=== PATIENT | male | born 1935 | race Caucasian/White ===

== ENCOUNTER 2023-07-02 19:56 | Inpatient (IN) | payer MEDICARE, BC, SELFPAY ==
[2023-07-02 17:05] VITALS: BP 142/72
[2023-07-02 17:20] VITALS: BP 142/72
[2023-07-02 17:44] LABS: % Basophils 0.5 % (0-2); % Immature Granulocytes 0.5 % (0-0.5); % Monocytes 3.7 % (1.7-9.3); % Neutrophils 94.3 % (42.2-75.2); Absolute Basophils 0.1 10^3/uL (0-0.2); Absolute Immature Granulocytes 0.1 10^3/uL (0-0.05); Absolute Lymphocytes 0.2 10^3/uL (1.2-3.4); Absolute Monocytes 0.6 10^3/uL (0.1-0.6); Absolute Neutrophils 14.5 10^3/uL (1.4-6.5); Hematocrit 29.4 % (39.0-52.0); Hemoglobin 9.9 g/dL (13.0-18.0); Mean Corp Hgb Conc. 33.7 g/dL (33.0-37.0); Mean Corpuscular Hgb 27.9 pg (27.0-31.0); Mean Corpuscular Volume 82.8 fL (80.0-94.0); Mean Platelet Volume 10.4 fL (7.4-10.4); Nucleated Red Blood Cells % 0 % (-); Platelet Count 183 10^3/uL (130-400); Red Blood Cell Count 3.55 10^6/uL (4.70-6.10); Red Cell Dist. Width 14.6 % (11.5-14.5); White Blood Cell Count 15.3 10^3/uL (4.8-10.8)
--- NOTE | 2023-07-02 17:53 | ED.GENMED ---
History of Present Illness
General
Chief Complaint: Fever
Time Seen by Provider: 07/02/23 17:38
Travel History
Have you had any contact with someone who has COVID-19?: No
Do you have any symptoms of coronavirus? Fever > 100 degrees, chills, cough, shortness of breath, sore throat, loss of taste or smell, muscle aches, or headache?: No
History of Present Illness
History of Present Illness:
88-year-old male with history of dementia, A-fib, and hyperlipidemia presents from [facility] due to fever and lethargy. Normally he is oriented only to self, requires a 24-hour one-to-one observation at his facility. notes
that he was less alert than normal over the past day and thus he was brought to the emergency department for evaluation. She also notes that he has had some difficulty with swallowing liquids with frequent coughing recently. Patient cannot provide
any further history due to dementia and acute encephalopathy
Past History
Past History
ED Past Medical History: None
ED Past Surgical History: None
Review of Systems
Review of Systems
Allergies reviewed?: Yes
All Other Systems: ROS reviewed and negative except as documented in HPI and ROS
Phy Exam
Physical Exam
Physical Exam:
GEN: Ill-appearing, acutely ill
Eyes: PERRLA, EOMs intact, no scleral icterus
HENT: NCAT, oral mucosa moist, large ulcerated lesion to the left maxillary face from known carcinoma per her spouse
Lungs: CTAB, no wheezes, rales, rhonchi, normal chest wall excursion
Cardiac: Tachycardic and irregular
Abdomen: S, NT, ND, NABS, no masses or hepatosplenomegaly
Neuro: Alert, intermittently follows commands
MSK: No gross deformity or ecchymosis. No edema. No digital clubbing
Skin: No rashes, petechiae. Normal color, no pallor or jaundice.
Psych: Calm, cooperative, proper hygiene
Course
Orders/Labs/Results
Orders:
Orders
07/02/23 17:32
Electrocardiogram (*1) Urgent
Reason for Study: Other
Other Reason for Exam: Possible Sepsis
O2 Therapy [RESP] Urgent
Titrate/Wean O2 to maintain O2 sat greater than (%): 93
Special Instructions: TO MAINTAIN CONTINUOUS O2 SATS > OR = 93%
07/02/23 17:33
EKG- Treatment ONCE
07/02/23 17:34
Complete Blood Count/With Diff Urgent
Comprehensive Metabolic Panel Urgent
Lactic Acid Q4H
Comment: ON ICE, CANCEL 2ND ORDER IF FIRST LACTIC ACID LEVEL <2
NT-proBNP Urgent
Comment: ADD ON
Blood Culture Q30M
ANABEL Source: Blood/Venous
Specimen Description:
Comment: FROM 2 SEPARATE SITES
Blood Culture Q30M
ANABEL Source: Blood/Venous
Specimen Description:
Comment: FROM 2 SEPARATE SITES
07/02/23 17:51
0.9% Sodium Chloride 1000 ml [Nss] 1,000 ml IV BOLUS
07/02/23 17:52
CR Chest Portable - 1 View Urgent
Comment:
Reason For Exam: fever
Reason Study Needs to be Portable: Other
07/02/23 17:53
Straight cath- Treatment ONCE
Acetaminophen [Tylenol/Feverall] 650 mg RECTAL NOW STA
07/02/23 18:13
COVID-19 Antigen Urgent
Source: Nasal Swab
Urinalysis Reflex To Culture Urgent
Date Specimen was Collected: 07/02/23
Time Specimen was Collected: 18:12
Urine Microscopic Reflex Cult Urgent
Influenza A+B Rapid Molecular Urgent
ANABEL Source: Nasal Swab
Specimen Description:
Urine Culture Urgent
ANABEL Source: U
Specimen Description:
Date Specimen was Collected: 07/02/23
Time Specimen was Collected: 18:12
07/02/23 18:36
CefTRIAXone [Rocephin] 1,000 mg IV NOW STA
07/02/23 19:28
Admit/Transfer Patient As Directed
Co-Sign Provider:
Level of Care: Inpatient admission
Assign to:: Telemetry
Physician / Group: lisa
Diagnosis: sepsis
Reason for Telemetry: Arrhythmia
Date to Stop Telemetry: 07/05/23
Time to Stop Telemetry: 11:00
Reason for Hospitalization: sepsis
Expected length of stay greater than two midnights?: Yes
ELOS- Estimated Length of Stay in days: 3
I certify the patient meets the requirements for IP care: Yes
07/02/23 19:29
Code Status As Directed
Resuscitation Status: Do not resuscitate
Reached after discussion with pt or family/Healthcare POA: Yes
DNR Bracelet Application ONCE
07/02/23 19:34
Add On- LAB Stat
Tests Added?: bnp
07/02/23 21:45
Lactic Acid Q4H
Comment: ON ICE, CANCEL 2ND ORDER IF FIRST LACTIC ACID LEVEL <2
07/02/23 22:04
0.9% Sodium Chloride 1000 ml [Nss] 1,000 ml IV 60 mls/hr
0.9% Sodium Chloride 1000 ml [Nss] 1,000 ml IV 60 mls/hr
Haloperidol Lactate [Haldol] 1 mg IV Q4HPRN PRN
Piperacillin/Tazo 3.375 Gram [Zosyn] 3.375 gram in 50 ml IV Q6H
07/02/23 22:04
Activity As Directed
Activity Level: As Tolerated
Intake/ Output As Directed
Frequency: Per unit guidelines
Venous Foot Pumps As Directed
Location: Bilateral feet
Vital Signs As Directed
Frequency: Per unit guidelines
Speech Therapy Eval & Treat Routine
DX Deep Vein Thrombosis Video Routine
04/24/24 Breakfast
NPO
Allow oral meds: No
Allow clear liquids: No
BMP [Basic Metabolic Panel] IN AM
Complete Blood Count/No Diff IN AM
07/04/23 06:00
BMP [Basic Metabolic Panel] IN AM
Complete Blood Count/No Diff IN AM
07/05/23 06:00
BMP [Basic Metabolic Panel] IN AM
Complete Blood Count/No Diff IN AM
07/05/23 11:00
DC Protocol for Telemetry ONCE
07/06/23 06:00
BMP [Basic Metabolic Panel] IN AM
Complete Blood Count/No Diff IN AM
07/07/23 06:00
BMP [Basic Metabolic Panel] IN AM
Complete Blood Count/No Diff IN AM
Abnormal Lab Results
07/02/23 07/02/23
17:34 18:13
WBC 15.3 H 10^3/uL
(4.8-10.8)
RBC 3.55 L 10^6/uL
(4.70-6.10)
Hgb 9.9 L g/dL
(13.0-18.0)
Hct 29.4 L %
(39.0-52.0)
RDW 14.6 H %
(11.5-14.5)
Abs Immat Gran (auto) 0.1 H 10^3/uL
(0-0.05)
Absolute Neuts (auto) 14.5 H 10^3/uL
(1.4-6.5)
Absolute Lymphs (auto) 0.2 L 10^3/uL
(1.2-3.4)
Neutrophils % 94.3 H %
(42.2-75.2)
Lymphocytes % 1.0 L %
(20.5-51.1)
BUN 35 H mg/dl
(9-20)
Glucose 136 H mg/dl
(70-99)
Alkaline Phosphatase 202 H U/L
(38-126)
Ur Occult Blood Reflex 3+ A
(Negative)
Urine Bilirubin 1+ A
(Negative)
Leukocyte Esterase Rfl 2+ A
(Negative)
Urine RBC 26-30 A /HPF
(0-2)
Urine WBC (Reflex) >100 A /HPF
(0-5)
Urine Albumin (Reflex) 1+ A
(Neg - Trace)
07/02/23 17:34
07/02/23 17:34
Vital Signs
Initial and Last Documented VS:
Initial Vital Signs
Temp Pulse Resp BP Pulse Ox
104.0 F H 106 22 142/72 92
07/02/23 17:05 07/02/23 17:05 07/02/23 17:05 07/02/23 17:05 07/02/23 17:05
Last Documented Vital Signs
Temp Pulse Resp BP Pulse Ox
103.8 F H 77 27 102/89 95
07/02/23 21:38 07/02/23 21:30 07/02/23 21:30 07/02/23 21:23 07/02/23 21:30
MDM/Problems Addressed
MDM/Problems Addressed:
Certainly some concern for aspiration pneumonia given the presence of frequent clearing of the throat and reported concern for coughing after eating. Certainly has a UTI evidenced by pyuria. Will admit to the hospitalist service for IV antibiotics
and further management
*Critical Care Note
Total Time (30-74mins, 75-104mins- exclusive of procedures): Not Applicable
ED Attending Note
-
Portions of this chart may have been created with voice recognition software.� Occasional wrong word or��sound alike� substitutions may have occurred due to the inherent limitations of voice recognition software.
Discharge Plan
Departure
Patient Disposition: Admit
Date of Disposition: 07/02/23
Time of Disposition: 19:13
Admit to: Med/Surg
Presentation/result/management discussed w/ accepting MD/DO: Hospitalist
Discharge Problem:
Sepsis, Urinary tract infection
Interventions
Interventions:
*Risk Screen - Suicide Last Done: 07/02/23 17:05
*General Assessment Last Done: 07/02/23 17:05
*Neglect/Abuse Screening Last Done: 07/02/23 17:05
ED- Fall Risk Assessment Last Done: 07/02/23 17:43
ED- Neurological Assessment Last Done: 07/02/23 17:43
ED-Skin Assessment Last Done: 07/02/23 17:43
[2023-07-02 17:56] LABS: ALT (SGPT) 21 U/L (0-50); AST (SGOT) 25 U/L (17-59); Albumin 4.1 g/dl (3.5-5.0); Alkaline Phosphatase 202 U/L (38-126); Blood Urea Nitrogen 35 mg/dl (9-20); Calcium 9.4 mg/dl (8.4-10.2); Carbon Dioxide 24 mmol/L (22-30); Chloride 107 mmol/L (98-107); Glucose 136 mg/dl (70-99); Potassium 4.4 mmol/L (3.5-5.1); Sodium 139 mmol/L (135-145); Total Bilirubin 0.8 mg/dl (0.2-1.3); Total Protein 7.2 g/dl (6.3-8.2); eGFR 52.84
[2023-07-02] MEDS: TYLENOL/FEVERALL 650 MG RECTAL (18:02)
[2023-07-02 18:08] VITALS: BP 127/72
[2023-07-02] MEDS: NSS 1000 IV ×2 (18:10→22:49)
[2023-07-02 18:12] VITALS: BMI 23.1
[2023-07-02 18:23] LABS: Urine Albumin 1+ (Neg - Trace); Urine Bilirubin 1+ (Negative); Urine Character Slightly Cloudy (Clear); Urine Color Yellow; Urine Glucose Negative (Negative); Urine Ketone Negative (Negative); Urine Leukocyte 2+ (Negative); Urine Nitrite Negative (Negative); Urine Occult Blood 3+ (Negative); Urine Specific Gravity 1.015 (<1.030); Urine Urobilinogen 1+ (Neg - 1+)
[2023-07-02 18:29] LABS: Urine Red Blood Cell 26-30 /HPF (0-2); Urine Squamous Cell 0-2 /LPF (Few); Urine White Cell >100 /HPF (0-5)
[2023-07-02 19:03] LABS: COVID-19 Antigen Negative (Negative)
--- NOTE | 2023-07-02 19:14 | HPS.HSE ---
Family Physician
-
Family Physician: Margarito Ghosh MD
Chief Complaint
-
lethargy
History of Present Illness
88-year-old male with history of dementia, A-fib, and hyperlipidemia presents from [facility] due to fever and lethargy. Normally he is oriented only to self, requires a 24-hour one-to-one observation at his facility. as per ,
he slept last night, which is not usual for him. today the nurse found him sob and fever of 104. She also notes that he has had some difficulty with swallowing liquids with frequent coughing recently. Patient cannot provide any further history due
to dementia and acute encephalopathy.
patient requiring 2l of oxygen. positive UA. chest x ray with aspiration pneumonia. received abx in ER. admitting for further management.
Medical History
Past Medical History
Past Medical History: Reports Other
Additional Past Medical History:
Irritable bowel syndrome
Rectal polyps
GERD
Kidney stones
Hypertension
Permanent A-fib
Gout
Aortic valve stenosis
Generalized anxiety disorder
Hypertension
Dyslipidemia
Vascular dementia
History of delirium
Iron deficiency anemia
Stroke
Nonmelanoma skin cancer
Past Surgical History: Reports Other
Additional Past Surgical History:
Aortic valve replacement
Rotator cuff repair
Basal cell mohs surgery
Cataract surgery
Appendectomy
Social History
Tobacco: Non-smoker
Alcohol: None
Drug: None
Personal:
Living: Long Term
Family History
Family History: Not pertinent
Allergies / Home Medications
Allergies reflects when Allergies were last updated in [employer].
Home Medications with original date entered in [employer]
Allergy/Medication List:
Allergies
Allergy/AdvReac Type Severity Reaction Status Date / Time
No Known Allergies Allergy Verified 07/02/23 17:05
Home Medications
sertraline 50 mg tablet 50 mg PO DAILY Depression 10/02/22
tamsulosin 0.4 mg capsule 0.4 mg PO DAILY Urinary Issue 10/02/22
atorvastatin 40 mg tablet 40 mg PO QPM #30 tabs 10/07/22
Neosporin + Lidocaine 1 applic topical TID 07/02/23
acetaminophen 500 mg tablet 1,000 mg PO TID PRN mild pain/fever 07/02/23
bisacodyl 10 mg rectal suppository (Dulcolax (bisacodyl)) 10 mg NC DAILY PRN if no bm in 8hrs after MOM 07/02/23
lorazepam 1 mg tablet 1 mg PO Q8H PRN anxiety/agitation 07/02/23
magnesium hydroxide 400 mg/5 mL oral suspension (Milk of Magnesia) 30 ml PO DAILY PRN if no bm x 2 days 07/02/23
melatonin 5 mg tablet 5 mg PO HS 07/02/23
memantine 5 mg tablet 5 mg PO BID 07/02/23
metoprolol succinate 25 mg capsule sprinkle, ext. release 24 hr 25 mg PO BID 07/02/23
olanzapine 10 mg tablet (Zyprexa) 10 mg PO HS 07/02/23
polyethylene glycol 3350 17 gram oral powder packet (Miralax) 17 g PO DAILY 07/02/23
sennosides 8.6 mg tablet (senna) 17.2 mg PO HS 07/02/23
sodium phosphates 19 gram-7 gram/118 mL enema (Fleet Enema) 118 ml NC DAILY PRN if no bm 8hrs after suppository 07/02/23
Review of Systems
-
Unable to obtain full review of systems at this time due to: Acuity
Physical Exam
Vital Signs
Vital Signs
Temp Pulse Resp BP Pulse Ox
104.0 F H 106 22 142/72 92
07/02/23 17:05 07/02/23 17:05 07/02/23 17:05 07/02/23 17:05 07/02/23 17:05
Physical Exam
General: Well Developed, Well Nourished and No Apparent Distress
HEENT: NormoCephalic, Moist mucous membranes and Atraumatic
Respiratory: Clear
Cardiac: S1/S2 and Regular Rhythm; No Murmur or Rub
GI: Soft, Non Tender, Non Distended and Normal Bowel Sounds; No Organomegaly
Rectal: Deferred by Provider
Musculoskeletal: No Clubbing, No Cyanosis and No Edema
Skin: No Rash
Neuro: Nonfocal/grossly intact
Psych: Confused
Laboratory Results
-
07/02/23 17:34
07/02/23 17:34
Laboratory Results
Lactic Acid 2.0 mmol/L (0.7-2.0) 07/02/23 17:34
Total Bilirubin 0.8 mg/dl (0.2-1.3) 07/02/23 17:34
AST 25 U/L (17-59) 07/02/23 17:34
ALT 21 U/L (0-50) 07/02/23 17:34
Alkaline Phosphatase 202 U/L (38-126) H 07/02/23 17:34
Data Reviewed
-
Diagnostic Radiology: Report Reviewed by me
Lab Data: Labs Reviewed by me
Impression/Plan
-
# Sepsis due to UTI
-WBCs 15.3, fever 104.0
-Blood and urine culture sent from ER
-IV Zosyn continued
-Tylenol as needed for fever
# Aspiration pneumonia
# Acute hypoxic respiratory failure
-Chest x-ray with impression of Left basilar parenchymal opacities suspicious for pneumonia.Mild pulmonary vascular congestion.
-Flu and COVID-negative
-Keep patient n.p.o. until evaluated by speech
-Continue supplemental oxygen to keep sat greater than 92
-Wean as tolerated
-Nebs as needed for short of breath and wheezing
#mild pulmonary vascular congestion
-BNP pending
-denied edema, weight gain
-ctm
# Acute on chronic anemia
-Hemoglobin 9.9
-Continue to trend
# Left facial skin cancer
-Patient scheduled for surgery this Saturday
# A-fib with RVR
#permanent Atrial Fibrillation
-Monitor on Telemetry
# Essential hypertension
-Continue to monitor
#Hyperlipidemia
-Resume atorvastatin when able to take PO meds
#BPH
Generalized Anxiety Disorder
-Oral meds on hold
-iv haldol prn for agitation
DVT proph: SCDs
Code Status: DNR confirmed with patient and family at the bedside
[2023-07-02] MEDS: ROCEPHIN 1000 MG IV (19:32)
--- NOTE | 2023-07-02 19:43 | W.PN.UPDATE ---
Update Note
Progress Note Update
This is an addendum to the H&P written by RN OBSERVATION Sade Santillan on 07/02/2023.
Patient seen and examined independently with RN OBSERVATION. 88-year-old male past medical history of dementia, sundowning, atrial fibrillation not on anticoagulation, hyperlipidemia, skin cancer of left cheek, presenting for fever, lethargy and worsening
mental status. Patient has been coughing swallowing liquids recently. Urinalysis showing UTI. Chest x-ray showed left basilar parenchymal opacity suspicious for pneumonia as well as some pulmonary edema. COVID and flu negative. Sepsis secondary
to likely aspiration pneumonia and UTI. Check blood cultures. N.p.o., IV fluids, Zosyn. Doubt patient can take oral medications at this time. Check speech and swallow evaluation after improvement. As needed Haldol as needed for agitation.
Check cardiac BNP given evidence of pulmonary edema chest x-ray although clinically doubt heart failure.
[2023-07-02 20:00] VITALS: BP 125/64
[2023-07-02] MEDS: TORADOL 15 MG IV (20:14)
[2023-07-02 20:35] LABS: NT-proBNP 13900 pg/ml
[2023-07-02 21:23] VITALS: BP 102/89
[2023-07-02] MEDS: OFIRMEV 100 IV (22:49)
--- NOTE | 2023-07-02 23:00 | PTCARENOTE ---
Patient admitted from ED. Patient AAO x1 which is baseline, on 2LNC, patient placed on tele monitor. Patient placed on medsitter for safety and confusion, patient mildly agitated, bed alarm is on. Left cheek wound noted on admission open to air.
Rectal temp is 104.0. Provider is aware. Patient given IV tylenol. Admission questions completed with granddaughter at bedside and patient's daughter on phone. Will continue to monitor temps and safety status. Call weiss is within reach.
[2023-07-02 23:03] VITALS: BMI 21.4
[2023-07-02 23:22] VITALS: BP 97/50; BMI 21.4
[2023-07-02] MEDS: ZOSYN 50 IV (23:23)
[2023-07-03] VITALS (30 sets, daily range): BP systolic 58–150; BP diastolic 29–104; BMI 21.7
--- NOTE | 2023-07-03 04:05 | PTCARENOTE ---
Manual BP 72/38. Provider is aware. Will continue to monitor.
[2023-07-03] MEDS: NSS 500 IV (04:19)
[2023-07-03 04:36] LABS: Hemoglobin 8.3 g/dL (13.0-18.0); Mean Corp Hgb Conc. 33.2 g/dL (33.0-37.0); Mean Corpuscular Hgb 27.9 pg (27.0-31.0); Mean Corpuscular Volume 84.2 fL (80.0-94.0); Mean Platelet Volume 11.2 fL (7.4-10.4); Platelet Count 138 10^3/uL (130-400); Red Blood Cell Count 2.97 10^6/uL (4.70-6.10); Red Cell Dist. Width 14.9 % (11.5-14.5); White Blood Cell Count 14.9 10^3/uL (4.8-10.8)
[2023-07-03 05:06] LABS: Blood Urea Nitrogen 44 mg/dl (9-20); Calcium 8.1 mg/dl (8.4-10.2); Carbon Dioxide 22 mmol/L (22-30); Chloride 111 mmol/L (98-107); Estimated Creatinine Clearance 26 ml/min; Glucose 114 mg/dl (70-99); Sodium 138 mmol/L (135-145); eGFR 33.51
[2023-07-03] MEDS: ZOSYN 50 IV ×2 (05:16→10:29)
--- NOTE | 2023-07-03 05:44 | W.PN.UPDATE ---
Update Note
Progress Note Update
RN notified PAYROLL AUDITOR BP 72/38 HR 60 RR 20 99% 2l, IV fluids maintained, ordered one 500 cc x1, Rechecked BP 88/42 HR 64 MAP 57. Labs ordered and noted hgb 8.3, no active bleeding per RN. Patient seen and evaluated. Patient lethargic (baseline) pulls away
as touched. Lungs diminished, RR 24, no edema noted, RRR. +BS 4 quad, Bladder Scan 135, large BM x1, ABG stat ordered, Will start Levophed infusion and transfer patient to IMU level.
[2023-07-03] MEDS: LEVOPHED 250 IV (06:10)
--- NOTE | 2023-07-03 06:15 | PTCARENOTE ---
Fishing Worker took multiple manual blood pressures on patient throughout the night due to dinamap machine reading low blood pressures. Patient does contract B/L upper extremities at times. Fishing Worker able to extend and relax right arm to take manual blood
pressures without arm being contracted. Calf blood pressures also taken, one reading 91/30 and the other 132/34. Levophed drip initiated per provider order. Order placed to transfer to IMU. Report given to DAWIT Parikh.
[2023-07-03] MEDS: NSS 1000 IV (07:24)
--- NOTE | 2023-07-03 07:39 | PTOTSP ---
Patient transferred to higher level of care ([id number] [phone] [id number]). New orders required for dysphagia evaluation. Please place as able/appropriate.
--- NOTE | 2023-07-03 09:00 | PTCARENOTE ---
Rec'd pt at 0700 s/p transfer from the 4th floor. Rec'd pt very drowsy and lethargic. Only response was some moaning to tactile stimuli. Legs are contracted. Moves arms slightly but will also tend to contract. . Pupils are sluggish at 2m. Skin is
pale wm and dry. L face/cheek with large skin cancer wound. Ecchymotic with pink wound bed and some scabbing. Respirs are unlabored on 2l nc with sats of 99%. Bs are coarse with decreased BS at the bases and few base crackles. Monitor AFib with
PVC's. + pulses. Able to get R PT and L DP pulses with the doppler. Feet are warm. No edema. Pt currently on IV Levophed at 2 mcg. BP cuff on R calf and readings as documented. Abd is soft with hypoactive BS. No urine currently. IV site L forearm
with Levophed infusing. Site wnl. Will monitor.
--- NOTE | 2023-07-03 10:14 | W.PN.HOSP.TC ---
Addendum entered and electronically signed by Jose Lopez MD 07/03/23 16:59:
ANNA.
ID consult ed and changed Abx to Dapto/Ceftriaxone. TTE shows echodensity c/w IE. Cardio eval ?BRIAN.
Original Note:
Today's Communication/Plan
-
IV fluids. IV antibiotics. Pressors.
Assessment / Plan
Assessment / Plan
Physical exam:
General: Acutely ill
HEENT: 6 x 4 wound on the left cheek area with raised red lesion proximal. Normocephalic, Atraumatic and Dry Mucous Membranes
Respiratory: Clear to Auscultation; Negative Wheezes, Rales or Rhonchi
Cardiac: Regular Rhythm and S1/S2
GI: Soft, Nontender and Nondistended
Neuro: Awake, Alert and Disoriented
A/P:
Septic shock and bacteremia
-Levophed and titrate off
-Keep in IMU then can decide if needs ICU upgrade or downgrade to telemetry depending on how he does over the next 24 hours.
-IV fluids
-IV antibiotics, Zosyn and add IV vancomycin
-Blood cultures positive with staph but awaiting identification
-Repeat blood cultures today
-Obtain transthoracic echocardiogram today
-WBC 14.9 today
-Discussed with at bedside today. Discussed if patient clinically deteriorates then would consider hospice care but follow response and progress for now.
-Of note patient with bioprosthetic aortic valve replacement.
Toxic metabolic encephalopathy
Due to sepsis with underlying dementia
Monitor mental status
Haldol as needed (reviewed latest EKG QTc 466)
Acute hypoxic respiratory failure
Titrate oxygen off
Seen reviewed chest x-ray and not really impressive
Permanent atrial fibrillation with rapid ventricular response
As infection improves this will improve as well
Add IV metoprolol as needed blood pressure.
History of CVA
On statin
tells me after stroke he has been mainly at rehab and wheelchair-bound
Dysphagia
Keep n.p.o.
Speech therapy for swallow eval
Skin cancer
Patient scheduled for surgery this coming Saturday but this will need to be postponed.
Anemia
Hemoglobin 8.3 today
Continue to monitor
Hypertension
Now hypotensive so hold antihypertensive and reevaluate
Hyperlipidemia
Resume atorvastatin when able to take PO meds
BPH
Will resume Flomax when taking oral
DVT proph: SCDs
Code Status: DNR. Prognosis guarded
Total Critical Care Time 40 minutes. I was immediately available to the patient and staff. I personally examined, reviewed labs, diagnostic images/reports, interpretations, treatment plans, discussed patient care with other providers and family
or caregivers (if patient is unable to make decisions), entered orders as appropriate and documented the medical record.
Anticipated Discharge: > 48 hours
Subjective/Interval History
-
Date of Service: July 03, 2023
Patient encephalopathic. Looks frail. Fevers with Tmax 104.9 Fahrenheit today
Objective Data
-
Labs:
Laboratory Results
07/03/23 07/03/23 07/03/23
04:25 05:40 06:00
WBC 14.9 H Cancelled
Hgb 8.3 L Cancelled
Hct 25.0 L Cancelled
Plt Count 138 D Cancelled
HCO3 Pending
Sodium 138 Cancelled
Potassium 4.0 Cancelled
Chloride 111 H Cancelled
Carbon Dioxide 22 Cancelled
BUN 44 H Cancelled
Creatinine 1.9 H Cancelled
Glucose 114 H Cancelled
Calcium 8.1 L Cancelled
Vital Signs:
Vital Signs
Temp Pulse Resp BP Pulse Ox
98.1 F 70 19 125/49 95
07/03/23 08:00 07/03/23 09:30 07/03/23 09:30 07/03/23 09:30 07/03/23 09:30
I&O
07/02/23 07/03/23 07/04/23
06:59 06:59 06:59
Intake Total 0 / 7.5 75.0 / 75.0
Balance 0 / 7.5 75.0 / 75.0
--- NOTE | 2023-07-03 10:30 | PTCARENOTE ---
Pt actually a little more awake. Answering yes and no to some questions. Denies pain. Could tell me his name and birthday. Incont a a large amt of soft roberts stool. Alba care given. Additional #20 int placed L AC. Blood Culture sent per MD Order.
Repositioned.
--- NOTE | 2023-07-03 11:03 | PHA.VAN.IN ---
Assessment
- Assessment
Renal Function: Appears elevated from baseline (SCR 1.3-->1.9 since admission vs 0.8 in September 2022)
Concomitant Antimicrobials: piperacillin/tazobactam
Plan
- Plan
Initial / Loading Dose: 2000mg - administration pending
Maintenance Regimen: dosing by level
Monitoring: random 07/03 599
Pharmacokinetics Vancomycin I
- -
Patient Age: 88
Patient Sex: Male
Vancomycin Day #: 1
Indication: Bacteremia
Requesting Provider: Dr. Lopez
Pertinent Antimicrobial Allergies:
NKDA
Height / Weight:
Height 5 ft 11 in
Actual Weight 69.57 kg
- Vital Signs / Lab Results
Temp Pulse Resp BP Pulse Ox
98.5 F 70 19 125/49 95
07/03/23 11:02 07/03/23 09:30 07/03/23 09:30 07/03/23 09:30 07/03/23 09:30
Lab Results - Hematology
07/02/23 07/03/23 07/03/23
17:34 04:25 06:00
WBC 15.3 H 14.9 H Cancelled
Lab Results - Chemistry
07/02/23 07/03/23 07/03/23
17:34 04:25 06:00
BUN 35 H 44 H Cancelled
Creatinine 1.3 1.9 H Cancelled
Estimated Creat Clear 26 Cancelled
Albumin 4.1
07/02/23 07/02/23
17:34 22:26
Lactic Acid 2.0 2.0
Lab Results - Urine
07/02/23
18:13
Urine Nitrite (Reflex) Negative
Leukocyte Esterase Rfl 2+ A
Urine WBC (Reflex) >100 A
Ur Squamous Epith Cells 0-2
Microbiology Results
07/02/23 17:34 Blood Culture - Preliminary
Blood/Venous Positive culture in progress
Gram Stain - Final
07/02/23 17:34 Blood Culture - Preliminary
Blood/Venous Positive culture in progress
Gram Stain - Final
07/02/23 18:13 Influenza Types A & B (TANG) - Final
Nasal Swab Negative for Influenza A & B, NAAT
Negative results must be combined with clinical observations
and patient history.
Nucleic Acid Amplification test (NAAT)performed on the
[employer] platform.
--- NOTE | 2023-07-03 11:30 | PTCARENOTE ---
Pts BP has improved and MAP is 66 currently . Levophed DC'd. Pt overall is drowsy but wakeful. Legs less contracted after repositioning earlier. RA sats 95%. Pt has not voided all morning- denies need to void. Bladder scanned for 210 mls. Will
monitor
[2023-07-03] MEDS: VANCOCIN 540 MG IV (11:35)
--- NOTE | 2023-07-03 13:46 | WOUNDNOTE ---
[facility] RN note: Patient admitted with sepsis. Patient admitted from [facility].
See H&P for complete history.
PMH: dementia, a fib, IRS, kidney stones, HTN, a fib, gout, aortic stenosis, anxiety disorder, CVA, non melanoma skin cancer, Basal cell Mohs surgery, appendectomy, rotator cuff repair, aortic valve replacement.
Wound Location and type/assessment: Patient admitted with: Large full thickness L facial cheek skin cancer wound to subcutaneous layer or deeper, pink with crusting. Smaller skin cancer lesion proximal to large ulcer. R heel blanchable red. RN
Ashley assessed patient's sacrum today and reports sacral skin is intact. L arm dermal skin tear.
Appetite: currently NPO.
Pressure redistribution devices in place: Centrella Max air bed. Patient cannot turn self in bed.
Plan: non stick gauze pad applied to L cheek open skin cancer ulcer. Silicone border foam changed on L arm. Protective foam applied R heel. Heels off bed with air chair cushion. Patient stated he was supposed to have surgery for his face cancer on
Saturday (Dr. Obrien?).
Will confirm orders with hospitalist and discussed with DAWIT Ramirez.
Care plan to be updated and will follow as needed.
--- NOTE | 2023-07-03 13:50 | WOUNDNOTE ---
FACIAL CHEEK (L SIDE)(with photo flash)
--- NOTE | 2023-07-03 14:00 | PTCARENOTE ---
Wound care in to see pt. See documentation. Family in to see pt and granddaughter and updated. Repositioned. No other changes. Remains off of Levophed.
--- NOTE | 2023-07-03 14:30 | CM ---
CM following re: discharge planning.
Reviewed pt's chart, met with pt and pt's granddaughter Dianelys at bedside.
Pt is an 88 year old male, admitted with primary dx of Sepsis.
Per granddaughter, pt lives at [facility] memory care unit, his spouse lives at [facility] independent apartment and they do have 3 supportive children. Per granddaughter, pt is w/c bound, requires total care, pt fell at memory care unit
and family is looking for another CJ.
PCP: Margarito Servin
Pharmacy: [facility].
D/C plan: return back to [facility] memory care unit or to another memory care facility per family request.
CM will follow with discharge plan updates as hospitalization progresses
--- NOTE | 2023-07-03 14:42 | CON.ID ---
Consultation
-
Date/Time Consultation Requested: 07/03/23 14:38
Date/Time Consultation Performed: 07/03/23 14:42
Requesting Provider: Dr Lopez
Performing Provider: Dr Adam
Reason for Consultation: Staph bacteremia
Chief Complaint / Past History
Chief Complaint
lethargy
History of Present Illness
Mr Shukla is an 88 year old male with history of dementia who presented here for fevers and lethargy. At baseline he is oriented to self and requires 24 hour 1:1 observation. Yesterday he was felt to be lethargic and nurse felt he was short of
breath and developing. + dysphagia for liquids and frequent cough. No vale on arrival.
Since arrival here he was initially persistently febrile on rectal Ts to 104.9, route has been switched to axillary and no further fevers have been recorded, BP was initially on norepi at 4 mcg/min which has been weaned off, wbc on arrivla 15.3 now
14.9, hgb 8.3, plt 138, L shift was initially noted, cr baseline is 0.8 on arrival 1.3 and now 1.9, bnp 83600, UA >100 wbc/hpf, 26-30 rbcs, lactic acid 2.0, covid ag neg, urine culture with GBS, two sets of blood cultures from the same time positive
for s aurues by PCR, a single repeat blood culture has been sent, CXR: Left basilar parenchymal opacities suspicious for pneumonia. patient has yet to produce a sputum.
Past History
Additional Past Medical History:
Irritable bowel syndrome
Rectal polyps
GERD
Kidney stones
Hypertension
Permanent A-fib
Gout
Aortic valve stenosis
Generalized anxiety disorder
Hypertension
Dyslipidemia
Vascular dementia
History of delirium
Iron deficiency anemia
Stroke
Nonmelanoma skin cancer
Additional Past Surgical History:
Aortic valve replacement
Rotator cuff repair
Basal cell mohs surgery
Cataract surgery
Appendectomy
Allergy History:
No Known Allergies Allergy (Verified 07/02/23 17:05)
Medications Reviewed: Yes
Social History
Tobacco: Non-Smoker
Alcohol: None
Drug: None
Family History
Family History: Not Pertinent
Review of Systems
Review of Systems
General: Fever
unable to obtain full ROS due to the condition of the patient
Vital Signs
Temp Pulse Resp BP Pulse Ox
98.5 F 65 14 104/91 96
07/03/23 11:02 07/03/23 14:00 07/03/23 14:00 07/03/23 14:00 07/03/23 14:00
Physical Exam
Physical Exam
Constitutional: No Acute Distress
Cardiovascular: Regular Rate and S1/S2; Negative Murmur or Rub
Pulmonary: Clear and Symmetric; Negative Wheezes, Rales or Rhonchi
Gastrointestinal: Soft, Non Tender, Non Distended and Normal Bowel Sounds
Skin: Warm, Dry and Other (ulcerative lesion with eschar on the L cheek - no surrounding erythema, purulence or odor; skin tear left arm - no erythema, warmth, tenderness or drainage; no other wounds on the skin, no cellulitis); Negative Rash or
Jaundice
Neurological: Awake; Negative Oriented
Lab / Diagnostic Study Results
07/03/23 06:00
07/03/23 06:00
Abs Immat Gran (auto) 0.1 10^3/uL (0-0.05) H 07/02/23 17:34
Absolute Neuts (auto) 14.5 10^3/uL (1.4-6.5) H 07/02/23 17:34
Absolute Lymphs (auto) 0.2 10^3/uL (1.2-3.4) L 07/02/23 17:34
Absolute Monos (auto) 0.6 10^3/uL (0.1-0.6) 07/02/23 17:34
Absolute Basos (auto) 0.1 10^3/uL (0-0.2) 07/02/23 17:34
Immature Gran % 0.5 % (0-0.5) 07/02/23 17:34
Neutrophils % 94.3 % (42.2-75.2) H 07/02/23 17:34
Lymphocytes % 1.0 % (20.5-51.1) L 07/02/23 17:34
Monocytes % 3.7 % (1.7-9.3) 07/02/23 17:34
Eosinophils % 0.0 % (0-6) 07/02/23 17:34
Basophils % 0.5 % (0-2) 07/02/23 17:34
Lactic Acid 2.0 mmol/L (0.7-2.0) 07/02/23 22:26
Ur Squamous Epith Cells 0-2 /LPF (Few) 07/02/23 18:13
Microbiology Results
Micro:
07/02/23 18:13 Urine Culture - Final
Urine Streptococcus agalactiae
07/02/23 17:34 Blood Culture - Preliminary
Blood/Venous Staphylococcus aureus
Gram Stain - Final
07/03/23 10:41 Blood Culture - Pending
Blood/Venous
07/02/23 17:34 Blood Culture - Preliminary
Blood/Venous Positive culture in progress
Gram Stain - Final
07/03/23 03:43 MRSA Screen - Pending
Nose
07/02/23 18:13 Influenza Types A & B (TANG) - Final
Nasal Swab Negative for Influenza A & B, NAAT
Negative results must be combined with clinical observations
and patient history.
Nucleic Acid Amplification test (NAAT)performed on the
IES platform.
Assessment / Plan
Shock - improving
S aureus bacteremia vs pseudobacteremia
GBS UTI
Possible Aspiration pneumonitis vs pneumonia vs atelectasis
Dysphagia
ANNA
Known Skin cancer - L cheek - does not appear to be suprainfected at this time
Aortic valve replacement
- there is eschar on the L cheek however without evidence of infection, no other evidence of a skin source at this time
- repeat blood cultures x2 before the daptomycin is started
- sputum culture if able to obtain
- CK in the AM, statin is held
- agree with TTE
- agree that CXR with questionable infiltrate vs atelectasis
- start daptomycin ~8mg/kg
- restart ceftriaxone, stop zosyn
- follow clinically
Care Review
Plan reviewed with: Nurse
--- NOTE | 2023-07-03 15:16 | PTCARENOTE ---
Answering simple questions but falls back to sleep easily. Incont of a mod amt of pasty brown stool. ECHO being done currently
--- NOTE | 2023-07-03 16:51 | CON.CAR ---
Addendum entered and electronically signed by David Cuenca MD 07/03/23 17:35:
I saw and examined the patient.
The OPTOMETRIST PRESIDENT/PRACTICE OWNER's note was reviewed and I agree with the note.
Comment: 88 y/o male with dementia, bio AVR 2006, permanent AFIB (not on Eliquis due to falls, bleeds, anemia, age- family preference), bradycardia, hypertension, skin cancer left cheek, and CVA who is here for evaluation of fever and lethargy.
Fever was 104.9 this admit. Blood culture with staph aureus.
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 He is likely not a surgical candidate.
- IV abx per ID
- will discuss with ID about future BRIAN/long-term plan
Original Note:
Consultation
Consultation Request
Date/Time Consultation Requested: 07/03/23
Date/Time Consultation Performed: 07/03/23 1499
Requesting Provider: Dr. Lopez
Performing Provider: Pratima GILMORE for Dr. Cuenca
Reason for Consultation: hx Bio AVR with vegetation
Medical History
-
Chief Complaint: fever, lethargy
History of Present Illness:
88 y/o male with dementia, bio AVR 2006, permanent AFIB (not on Eliquis due to falls, bleeds, anemia, age- family preference), bradycardia, hypertension, skin cancer left cheek, and CVA who is here for evaluation of fever and lethargy. Fever was
104.9 this admit. Blood culture with staph aureus. Concern for UTI, PNA. Has lesion on left cheek. He was admitted for septic shock and is s/p IVF, IV antibiotics. He required Levophed for BP support, but is now off. He is confused overall and AAO x
1. He is no distress at the time of my assessment. We are consulted since echo showed aortic valve mobile echo density (appears to be vegetation) and mitral valve with echodensity on anterior leaflet (differential includes calcium vs vegetation).
Past Medical History
Past Medical History: Arrhythmias, Cancer, CVA, HTN, Valvular Disease (bio AVR) and Other
Social History
Tobacco: Non-Smoker
Personal:
Family History
Family History: Reviewed & Not Pertinent
Allergies / Home Medications
Allergy/AdvReac Type Severity Reaction Status Date / Time
No Known Allergies Allergy Verified 07/02/23 17:05
�Medication �Instructions �Recorded �Confirmed �Type
sertraline 50 mg tablet 50 mg PO DAILY Depression 10/02/22 07/02/23 History
tamsulosin 0.4 mg capsule 0.4 mg PO DAILY Urinary Issue 10/02/22 07/02/23 History
atorvastatin 40 mg tablet 40 mg PO QPM #30 tabs 10/07/22 07/02/23 Rx
Neosporin + Lidocaine 1 applic topical TID Skin Issues 07/02/23 07/02/23 History
acetaminophen 500 mg tablet 1,000 mg PO TID PRN mild pain/fever 07/02/23 07/02/23 History
bisacodyl 10 mg rectal suppository 10 mg MD DAILY PRN if no bm in 07/02/23 07/02/23 History
(Dulcolax (bisacodyl)) 8hrs after MOM
lorazepam 1 mg tablet 1 mg PO Q8H PRN anxiety/agitation 07/02/23 07/02/23 History
magnesium hydroxide 400 mg/5 mL 30 ml PO DAILY PRN if no bm x 2 07/02/23 07/02/23 History
oral suspension (Milk of Magnesia) days
melatonin 5 mg tablet 5 mg PO HS Sleep 07/02/23 07/02/23 History
memantine 5 mg tablet 5 mg PO BID Neurological Condition 07/02/23 07/02/23 History
metoprolol succinate 25 mg capsule 25 mg PO BID Heart 07/02/23 07/02/23 History
sprinkle, ext. release 24 hr Disease/Condition
olanzapine 10 mg tablet (Zyprexa) 10 mg PO HS Mental Health/Anxiety 07/02/23 07/02/23 History
polyethylene glycol 3350 17 gram 17 g PO DAILY Constipation 07/02/23 07/02/23 History
oral powder packet (Miralax)
sennosides 8.6 mg tablet (senna) 17.2 mg PO HS Constipation 07/02/23 07/02/23 History
sodium phosphates 19 gram-7 118 ml MD DAILY PRN if no bm 8hrs 07/02/23 07/02/23 History
gram/118 mL enema (Fleet Enema) after suppository
Review of Systems
-
Unable to obtain full review of systems at this time due to: Dementia
History Source: Other (chart)
All other systems: Negative unless noted
Constitutional: Fever
Neurological: Other (lethargy)
Physical Exam
Vital Signs
Temp Pulse Resp BP Pulse Ox
98.9 F 66 13 99/57 95
07/03/23 15:10 07/03/23 15:00 07/03/23 15:00 07/03/23 15:00 07/03/23 15:00
Lab Results
07/03/23 06:00
07/03/23 06:00
Afg-O-Ynyradsxadx Pept 48513 pg/ml 07/02/23 17:34
Physical Exam
General: Well Developed, Well Nourished and No Apparent Distress
HEENT: Normocephalic and Anicteric
Respiratory: Non Labored Respirations
Cardiac: Irregular Rhythm
Skin: Other (left cheek with lesion)
Neuro: Awake, Alert and Oriented (self only)
Psych: Calm
Impression / Plan
-
Septic shock:
-initially concern for UTI, and PNA. Patient with lesion to left cheek known to be skin CA. Hx bio AVR - Now with vegetation as below.
-s/p IVF and ABX. ID on the case.
-now off Levophed
-Echo 07/03/23: EF 55 to 60%, Stage III DD, Dilated RV with normal systolic function, Well-seated bioprosthetic AV with peak/mean gradients of 27/17 mmHg. There is a 1.0 x 0.8 cm mobile echo density noted. Trace aortic regurgitation. Mild mitral
regurgitation. Echodensity on anterior leaflet (views 75-80), measures 0.8 x 0.6 cm, differential includes calcium vs vegetation. Moderate tricuspid regurgitation. Estimated pulmonary artery pressure of 55 mmHg. - Patient currently does not appear
to be good cardiothoracic surgical candidate to my assessment. Continue IV abx per ID.
Permanent AFIB:
-stable, on BB as OP, held at this time
-not on OAC for reasons as noted above
HTN:
-has been on Levophed, but currently off
-off BB at this time
Hx Bio AVR: as above
Hx CVA
Dementia
Data Reviewed
-
EKG: Tracing Personally Visualized and interpreted (baseline artifact, but appears as afib with bifasicular block and PVC)
Radiology: Report Reviewed by me (CXR 07/02/23: Left basilar parenchymal opacities suspicious for pneumonia. 2. Mild pulmonary vascular congestion.)
Medical Tests (Nuc Med, Echo etc): Report Reviewed by me (Echo as noted)
Labs: Labs Reviewed by me
--- NOTE | 2023-07-03 17:07 | PTCARENOTE ---
No changes in assessment. Answers some basic questions but remains disoriented to place, day, month, year etc. Thought he was in [place]. No urine output all shift. Rebladder scanned for 227 mls. Cardiology in to see pt. Repositioned. No c/o pain.
VS as documented. Dr. Lopez updated. 2nd Blood culture sent via peripheral stick as ordered
[2023-07-03] MEDS: CUBICIN 11.1999999999999993 MG IV (19:02)
[2023-07-03] MEDS: STERILE WATER FOR INJECTION 20 ML IV (20:38)
[2023-07-03] MEDS: ROCEPHIN 2000 MG IV (20:38)
[2023-07-04] VITALS (18 sets, daily range): BP systolic 94–172; BP diastolic 51–85
--- NOTE | 2023-07-04 01:59 | PTCARENOTE ---
voiding without difficulty- saturates depends. afebrile bp wnl- afib bbb- personal care aide staying night and washes him for safety.
[2023-07-04] MEDS: NSS 1000 IV ×2 (03:11→14:07)
[2023-07-04 04:50] LABS: Hematocrit 24.2 % (39.0-52.0); Hemoglobin 8.1 g/dL (13.0-18.0); Mean Corp Hgb Conc. 33.5 g/dL (33.0-37.0); Mean Corpuscular Hgb 28.3 pg (27.0-31.0); Mean Corpuscular Volume 84.6 fL (80.0-94.0); Mean Platelet Volume 11.7 fL (7.4-10.4); Platelet Count 112 10^3/uL (130-400); Red Blood Cell Count 2.86 10^6/uL (4.70-6.10); Red Cell Dist. Width 15.2 % (11.5-14.5); White Blood Cell Count 11.4 10^3/uL (4.8-10.8)
[2023-07-04 05:18] LABS: Blood Urea Nitrogen 46 mg/dl (9-20); Carbon Dioxide 19 mmol/L (22-30); Chloride 117 mmol/L (98-107); Creatine Phosphokinase 130 U/L (55-170); Estimated Creatinine Clearance 34 ml/min; Glucose 75 mg/dl (70-99); Magnesium 1.7 mg/dl (1.6-2.3); Potassium 3.7 mmol/L (3.5-5.1); Sodium 141 mmol/L (135-145)
--- NOTE | 2023-07-04 08:25 | W.PN.CD ---
Addendum entered and electronically signed by David Cuenca MD 07/04/23 16:16:
Discussed with ID no need for BRIAN.
We will sign off; please call with questions/concerns.
Original Note:
Today's Communication / Plan
-
IV abx per primary/ID
Will discuss with ID about BRIAN
Impression / Plan
-
Septic shock:
-initially concern for UTI, and PNA. Patient with lesion to left cheek known to be skin CA. Hx bio AVR - Now with vegetation as below.
-s/p IVF and ABX. ID on the case.
-now off Levophed
-Echo 07/03/23: EF 55 to 60%, Stage III DD, Dilated RV with normal systolic function, Well-seated bioprosthetic AV with peak/mean gradients of 27/17 mmHg. There is a 1.0 x 0.8 cm mobile echo density noted. Trace aortic regurgitation. Mild mitral
regurgitation. Echodensity on anterior leaflet (views 75-80), measures 0.8 x 0.6 cm, differential includes calcium vs vegetation. Moderate tricuspid regurgitation. Estimated pulmonary artery pressure of 55 mmHg. - Patient currently does not appear
to be good cardiothoracic surgical candidate to my assessment. Continue IV abx per ID.
- will discuss with ID about utility of BRIAN
Permanent AFIB:
-stable, on BB as OP, held at this time
-not on OAC for reasons as noted above
HTN:
-has been on Levophed, but currently off
-off BB at this time
Hx Bio AVR: as above
Hx CVA
Dementia
Physical Exam
Vital Signs/Labs
Vital Signs
Temp Pulse Resp BP Pulse Ox
98.9 F 85 20 172/85 93
07/04/23 07:54 07/04/23 07:00 07/04/23 07:00 07/04/23 07:00 04/25/24 07:00
07/03/23 07/04/23 07/05/23
06:59 06:59 06:59
Actual Weight 155 lb 10.342 oz
07/04/23 04:31
07/04/23 04:31
Magnesium 1.7 mg/dl (1.6-2.3) 07/04/23 04:31
07/02/23
17:34
Qkv-F-Jqsjitmbepa Pept [id number]
Physical Exam
Constitutional: No acute distress
EENT: Anicteric and Other (large eschar with oozing on left side of face )
Cardiovascular: Pedal edema is absent and Rhythm/rate is irregular
Respiratory: Respiratory effort normal and Lungs clear to auscul.
GI: Soft
Neuro/Psych: Oriented (alert and oriented to person only )
Data Reviewed
-
Date of Service: July 04, 2023
Medical Decision Making: Reviewed Test Results
EKG: Tracing Personally Visualized and interpreted (AF)
Echo: Tracing Personally Visualized and interpreted
Labs: Labs Reviewed by me
--- NOTE | 2023-07-04 08:30 | PTOTSP ---
Speech Language Pathology
Pt seen for clinical bedside swallow evaluation. Seen by RUBBER ENGRAVER in September 2022 with recommendations for dysphagia 3 solids/thin liquids. Pt is on regular solids/thin liquids at [facility] per facility facesheet. P.O. trials of puree, thin liquids,
and mildly thick liquids provided. Adequate oral phase with limited consistencies trialed. Intermittent wet voice, throat clear, and brief delayed cough with thin liquids. Significantly prolonged strong coughing episode with mildly thick liquids.
Suspect aspiration. Further P.O. trials deferred.
Recommend:
(1) NPO
(2) Allow ice chips post oral care per Aspiration Risk Hydration Protocol (ARHP)
(3) Oral care 4x/day with suctioning as needed
(4) Non-oral meds
(5) Likely VSE once improvement noted bedside
(6) RUBBER ENGRAVER to continue to follow
--- NOTE | 2023-07-04 08:36 | W.PN.HOSP.TC ---
Today's Communication/Plan
-
IV antibiotics. +/- BRIAN
Assessment / Plan
Assessment / Plan
Physical exam:
General: Acutely ill
HEENT: 6 x 4 wound on the left cheek area with raised red lesion proximal. Normocephalic, Atraumatic and Dry Mucous Membranes
Respiratory: Clear to Auscultation; Negative Wheezes, Rales or Rhonchi
Cardiac: Regular Rhythm and S1/S2
GI: Soft, Nontender and Nondistended
Neuro: Awake, Alert and Disoriented
TTE:
Normal LV size and function with no regional wall motion abnormalities.
LVEF is 55 to 60% by Dover's method of discs.
Stage III diastolic dysfunction suggestive of restrictive filling pattern and
increased filling pressures.
Dilated RV with normal systolic function.
Well-seated bioprosthetic aortic valve with peak and mean gradients of 27 and
17 mmHg, respectively. There is a 1.0 x 0.8 cm mobile echo density noted. Trace
aortic regurgitation.
Mild mitral regurgitation. Echodensity on anterior leaflet (views 75-80),
measures
0.8 x 0.6 cm, differential includes calcium vs vegetation.
Moderate tricuspid regurgitation. Estimated pulmonary artery pressure of 55
mmHg, assuming a right atrial pressure of 8 mmHg.
Compared to prior from October 03, 2022, mobile echodensities noted as above are
new and elevated PASP is mild to moderately elevated compared to severely
elevated previously.
A/P:
Septic shock and bacteremia
-Levophed off
-IV fluids
-ID consult appreciated
-IV antibiotics, daptomycin and ceftriaxone
-Blood cultures positive with staph but awaiting identification
-Repeat blood cultures on 07/02 and 07/03 pending
-Obtained transthoracic echocardiogram
-WBC 11.4 today
-Discussed with at bedside today. Discussed if patient clinically deteriorates then would consider hospice care but follow response and progress for now.
-Of note patient with bioprosthetic aortic valve replacement.
-Cardiology consulted--> defer to cardiology and ID if BRIAN will be needed
Acute kidney injury
Related to sepsis
Creatinine 1.3 up to 1.9 yesterday and down to 1.5 today
Continue IV fluids
Monitor renal function
Toxic metabolic encephalopathy
Due to sepsis with underlying dementia
Monitor mental status
Haldol as needed (reviewed latest EKG QTc 466)
Acute hypoxic respiratory failure
Titrate oxygen off
Seen reviewed chest x-ray and not really impressive
Permanent atrial fibrillation with rapid ventricular response
As infection improves this will improve as well
Add IV metoprolol as needed blood pressure.
History of CVA
On statin
tells me after stroke he has been mainly at rehab and wheelchair-bound
Dysphagia
Keep n.p.o.
Speech therapy for swallow eval
Skin cancer
Patient scheduled for surgery this coming Saturday but this will need to be postponed.
Anemia
Hemoglobin 8.3 today
Continue to monitor
Hypertension
Now hypotensive so hold antihypertensive and reevaluate
Hyperlipidemia
Resume atorvastatin when able to take PO meds
BPH
Will resume Flomax when taking oral
DVT proph: SCDs
Code Status: DNR. Prognosis guarded
Total Critical Care Time 40 minutes. I was immediately available to the patient and staff. I personally examined, reviewed labs, diagnostic images/reports, interpretations, treatment plans, discussed patient care with other providers and family
or caregivers (if patient is unable to make decisions), entered orders as appropriate and documented the medical record.
Anticipated Discharge: > 48 hours
Subjective/Interval History
-
Date of Service: July 04, 2023
Patient alert. Off pressors. Afebrile
Objective Data
-
Labs:
Laboratory Results
07/04/23
04:31
WBC 11.4 H
Hgb 8.1 L
Hct 24.2 L
Plt Count 112 L
Sodium 141
Potassium 3.7
Chloride 117 H
Carbon Dioxide 19 L
BUN 46 H
Creatinine 1.5 H
Glucose 75
Calcium 8.0 L
Vital Signs:
Vital Signs
Temp Pulse Resp BP Pulse Ox
98.9 F 85 20 172/85 93
07/04/23 07:54 07/04/23 07:00 07/04/23 07:00 07/04/23 07:00 07/04/23 07:00
I&O
07/03/23 07/04/23 07/05/23
06:59 06:59 06:59
Intake Total 0 / 7.5 2235.0 / 2235.0
Output Total 0 / 0
Balance 0 / 7.5 2235.0 / 2235.0
--- NOTE | 2023-07-04 08:38 | PTCARENOTE ---
recd pt resting on side, awakens, speech a little garbled initially but oriented to place and person. wants to sleep, be left alone. VS noted, lungs clear, attends dry.
--- NOTE | 2023-07-04 08:52 | W.PN.ID1 ---
Date of Service
Date of Service: July 04, 2023
Today's Communication
- continue daptomycin ~8mg/kg plan 6 weeks of therapy
- continue ceftriaxone - day 3, plan short course for questionable pneumonia vs pneumonitis
- eventual PICC line when blood cultures persistently clear
- follow clinically; medium-fci prognosis guarded, by history patient has end stage dementia which typically has a 6 month life expectancy in and of itself and is its own indication for hospice. I have discussed the above in detail with
in person and adult daughter by phone. Shared that at this time he does not seem to be suffering and reasonable to try medical management. is concerned that he has a history of sundowning and has pulled out devices in the past. If we begin
to encounter that, and he pulls out a PICC line, then the risks of ongoing treatment would likely outweight the benefits and I would recommend hospice. Family understand the recommendation in that scenario. At this time we plan to continue with
medical management.
Assessment / Plan
Endocarditis
S aureus bacteremia
Shock - resolved
GBS UTI
Possible Aspiration pneumonitis vs pneumonia vs atelectasis
Dysphagia
ANNA - improving
Known Skin cancer - L cheek - does not appear to be suprainfected at this time
Aortic valve replacement
Dementia - end stage
- large, mobile echodensity on the bioprosthetic AV valve ntoed
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
- not a surgical candidate for valve replacement which is an invasive surgery requiring intubation; if not a candidate for this surgery, then risks of BRIAN outweigh benefits as diagnosis is already confirmed. Discussed with Dr Cuenca today who is
in agreement.
- note that a much less invasive surgical procedure (such as Mohs) might still be considered on an outpatient basis - however the risks of such a procedure are dramatically different
- note that patient is at risk of embolic stroke - risk somewhat mitigated by antibiotics, would keep it on the differential if there is a change in his exam
- repeat blood cultures x2 before the daptomycin is started
- daily blood cultures from here on out
- sputum culture if able to obtain - none produced so far
- CK weekly while on daptomycin, statin is held
- agree that CXR with questionable infiltrate vs atelectasis
- continue daptomycin ~8mg/kg plan 6 weeks of therapy
- continue ceftriaxone - day 3, plan short course for questionable pneumonia vs pneumonitis
- eventual PICC line when blood cultures persistently clear
- follow clinically; medium-fci prognosis guarded, by history patient has end stage dementia which typically has a 6 month life expectancy in and of itself. I have discussed the above in detail with in person and adult daughter by phone.
Shared that at this time he does not seem to be suffering and reasonable to try medical management. is concerned that he has a history of sundowning and has pulled out devices in the past. If we begin to encounter that, and he pulls out a
PICC line, then the risks of ongoing IV antibiotic treatment would likely outweigh the benefits and I would recommend hospice. Family understand the recommendation in that scenario. We also discussed his risk of stroke. At this time we plan to
continue with medical management.
Chief Complaint
-: Other (endocarditis)
Subjective / Review of Systems
fever resolved
bp stable off of pressors
declining leukocytosis
hgb stable
plt dropped
crcl now 34
ck 34
echo reviewed
Vital Signs / Physical Exam
Vital Signs
Vital Signs
Temp Pulse Resp BP Pulse Ox
98.9 F 76 21 128/63 96
07/04/23 07:54 07/04/23 08:05 07/04/23 08:05 07/04/23 08:05 07/04/23 08:05
Physical Exam
Constitutional: No Acute Distress and Chronically Ill
Cardiovascular: Regular Rate and S1/S2; Negative Murmur or Rub
Pulmonary: Clear and Symmetric; Negative Wheezes or Rales
Gastrointestinal: Soft, Non Tender, Non Distended and Normal Bowel Sounds
Skin: Warm and Dry; Negative Rash or Jaundice
Neurological: Awake; Negative Oriented
Lines: PIV
Objective Data
Lab Data
Lab Results
07/04/23 04:31
07/04/23 04:31
Estimated Creat Clear 34 ml/min 07/04/23 04:31
Lactic Acid 2.0 mmol/L (0.7-2.0) 07/02/23 22:26
Total Bilirubin 0.8 mg/dl (0.2-1.3) 07/02/23 17:34
AST 25 U/L (17-59) 07/02/23 17:34
ALT 21 U/L (0-50) 07/02/23 17:34
Alkaline Phosphatase 202 U/L (38-126) H 07/02/23 17:34
Most recent labs reviewed.
Micro Results:
07/03/23 03:43 MRSA Screen - Final
Nose No Methicillin Resistant Staphylococcus aureus isolated.
07/04/23 04:31 Blood Culture - Pending
Blood/Venous
07/03/23 16:18 Blood Culture - Pending
Blood/Venous
07/02/23 18:13 Urine Culture - Final
Urine Streptococcus agalactiae
07/02/23 17:34 Blood Culture - Preliminary
Blood/Venous Staphylococcus aureus
Gram Stain - Final
07/03/23 10:41 Blood Culture - Pending
Blood/Venous
07/02/23 17:34 Blood Culture - Preliminary
Blood/Venous Positive culture in progress
Gram Stain - Final
07/02/23 18:13 Influenza Types A & B (TANG) - Final
Nasal Swab Negative for Influenza A & B, NAAT
Negative results must be combined with clinical observations
and patient history.
Nucleic Acid Amplification test (NAAT)performed on the
[employer] platform.
Care Review
Plan reviewed with: Nurse (dispo)
--- NOTE | 2023-07-04 12:43 | PTCARENOTE ---
No other change, turned, cleaned, linens changed, mouth care. Warm blanket given, calm at present. in to visit. Remains on video monitor for safety.
--- NOTE | 2023-07-04 17:09 | PTCARENOTE ---
report given, transferred to new bed that is air mattress per MD order, condom cath off, replaced, attends over to keep patent. few ice chips, tolerated well.
--- NOTE | 2023-07-04 17:30 | PTCARENOTE ---
Patient received to room 435-02 in bed from ICU. Patient oriented to room. Call weiss in reach. Medtt bedside.
[2023-07-04] MEDS: CUBICIN 11.1999999999999993 MG IV (18:26)
[2023-07-04] MEDS: STERILE WATER FOR INJECTION 20 ML IV (21:19)
[2023-07-04] MEDS: ROCEPHIN 2000 MG IV (21:19)
[2023-07-05] VITALS (7 sets, daily range): BP systolic 122–181; BP diastolic 70–96; PULSE 81; O2SAT 97; BMI 21.7
[2023-07-05] MEDS: NSS 1000 IV ×2 (02:02→15:58)
[2023-07-05 06:48] LABS: Hematocrit 26.2 % (39.0-52.0); Hemoglobin 8.6 g/dL (13.0-18.0); Mean Corp Hgb Conc. 32.8 g/dL (33.0-37.0); Mean Corpuscular Hgb 28.1 pg (27.0-31.0); Mean Corpuscular Volume 85.6 fL (80.0-94.0); Mean Platelet Volume 11.3 fL (7.4-10.4); Platelet Count 115 10^3/uL (130-400); Red Blood Cell Count 3.06 10^6/uL (4.70-6.10); Red Cell Dist. Width 15.6 % (11.5-14.5); White Blood Cell Count 11.1 10^3/uL (4.8-10.8)
[2023-07-05 07:13] LABS: Blood Urea Nitrogen 35 mg/dl (9-20); Calcium 8.7 mg/dl (8.4-10.2); Carbon Dioxide 19 mmol/L (22-30); Chloride 120 mmol/L (98-107); Estimated Creatinine Clearance 57 ml/min; Glucose 81 mg/dl (70-99); Sodium 144 mmol/L (135-145); eGFR > 60.00
--- NOTE | 2023-07-05 07:47 | W.PN.HOSP.TC ---
Addendum entered and electronically signed by Jose Lopez MD 07/05/23 14:29:
Pulmonary edema has been ruled out
Original Note:
Today's Communication/Plan
-
On antibiotics. Hospice consult.
Assessment / Plan
Assessment / Plan
Physical exam:
General: Acutely ill
HEENT: 6 x 4 wound on the left cheek area with raised red lesion proximal. Normocephalic, Atraumatic and Dry Mucous Membranes
Respiratory: Clear to Auscultation; Negative Wheezes, Rales or Rhonchi
Cardiac: Regular Rhythm and S1/S2
GI: Soft, Nontender and Nondistended
Neuro: Awake, Alert and Disoriented
TTE:
Normal LV size and function with no regional wall motion abnormalities.
LVEF is 55 to 60% by Dover's method of discs.
Stage III diastolic dysfunction suggestive of restrictive filling pattern and
increased filling pressures.
Dilated RV with normal systolic function.
Well-seated bioprosthetic aortic valve with peak and mean gradients of 27 and
17 mmHg, respectively. There is a 1.0 x 0.8 cm mobile echo density noted. Trace
aortic regurgitation.
Mild mitral regurgitation. Echodensity on anterior leaflet (views 75-80),
measures
0.8 x 0.6 cm, differential includes calcium vs vegetation.
Moderate tricuspid regurgitation. Estimated pulmonary artery pressure of 55
mmHg, assuming a right atrial pressure of 8 mmHg.
Compared to prior from October 03, 2022, mobile echodensities noted as above are
new and elevated PASP is mild to moderately elevated compared to severely
elevated previously.
A/P:
Septic shock and bacteremia:
Patient's family has opted for his care and seems to be reasonable.
Reevaluate course of treatment depending on final decisions with family.
Hospice care consulted today
Discussed with ID via [place] text
Prior to today:
-Levophed off
-IV fluids
-ID consult appreciated
-IV antibiotics, daptomycin and ceftriaxone
-Blood cultures positive with staph but awaiting identification
-Repeat blood cultures on 07/02 and 07/03 pending
-Obtained transthoracic echocardiogram
-WBC 11.4 today
-Discussed with at bedside today. Discussed if patient clinically deteriorates then would consider hospice care but follow response and progress for now.
-Of note patient with bioprosthetic aortic valve replacement.
-Cardiology consulted--> defer to cardiology and ID if BRIAN will be needed
Acute kidney injury
Related to sepsis
Creatinine peak at 1.9 and down to 0.9 today
Continue IV fluids
Monitor renal function
Toxic metabolic encephalopathy
Due to sepsis with underlying dementia
Monitor mental status
Haldol as needed (reviewed latest EKG QTc 466)
Acute hypoxic respiratory failure
Titrate oxygen off
Seen reviewed chest x-ray and not really impressive
Permanent atrial fibrillation with rapid ventricular response
As infection improves this will improve as well
Add IV metoprolol as needed blood pressure.
History of CVA
On statin
tells me after stroke he has been mainly at rehab and wheelchair-bound
Dysphagia
If decided on comfort measures might restart diet soon but will reevaluate.
Keep n.p.o.
Speech therapy for swallow eval
Skin cancer
Patient scheduled for surgery this coming Saturday but this will need to be postponed.
Anemia
Hemoglobin 8.6 today
Continue to monitor
Hypertension
Now hypotensive so hold antihypertensive and reevaluate
Hyperlipidemia
Resume atorvastatin when able to take PO meds
BPH
Will resume Flomax when taking oral
DVT proph: SCDs
Code Status: DNR. Prognosis guarded
Total Critical Care Time 40 minutes. I was immediately available to the patient and staff. I personally examined, reviewed labs, diagnostic images/reports, interpretations, treatment plans, discussed patient care with other providers and family
or caregivers (if patient is unable to make decisions), entered orders as appropriate and documented the medical record.
Anticipated Discharge: > 48 hours
Subjective/Interval History
-
Date of Service: July 05, 2023
Patient looks frail overall. Afebrile
Objective Data
-
Labs:
Laboratory Results
07/05/23
06:28
WBC 11.1 H
Hgb 8.6 L
Hct 26.2 L
Plt Count 115 L
Sodium 144
Potassium 4.0
Chloride 120 H
Carbon Dioxide 19 L
BUN 35 H
Creatinine 0.9
Glucose 81
Calcium 8.7
Vital Signs:
Vital Signs
Temp Pulse Resp BP Pulse Ox
98.3 F 84 18 168/86 97
07/05/23 03:00 07/05/23 03:00 07/05/23 03:00 07/05/23 03:00 07/05/23 03:00
I&O
07/04/23 07/05/23 07/06/23
06:59 06:59 06:59
Intake Total 2235.0 / 2235.0 1780 / 1780
Output Total 0 / 0 1050 / 1050
Balance 2235.0 / 2235.0 730 / 730
--- NOTE | 2023-07-05 09:33 | PTOTSP ---
Speech Language Pathology
Pt seen for dysphagia tx. P.O. trials of ice chips, puree, thin liquids, and mildly thick liquids provided. Initial bolus holding initially noted with delayed oral management. Able to fully clear oral cavity. Immediate strong coughing episode
with thin liquids. Wet voice and throat clearing following mildly thick liquids. Suspect aspiration.
Recommend:
(1) VSE
(2) NPO
(3) Allow ice chips post oral care given supervision per Aspiration Risk Hydration Protocol
(4) Non-oral meds
(5) DIALYSIS RN to continue to follow
--- NOTE | 2023-07-05 10:29 | PN.CDI ---
CDI
- -
CDI:
Physician Documentation Request
Admit Date: 07/02/23 19:56
Dear Doctor Jessica,
Clinical Indicators:
Patient admitted with septic shock and acute hypoxic respiratory failure.
07/01 H & P, 'Chest x-ray showed left basilar parenchymal opacity suspicious for pneumonia as well as some pulmonary edema.'
Echo: 'LVEF is 55 to 60%...Stage III diastolic dysfunction suggestive of restrictive filling pattern and
increased filling pressures.'
pro BNP:
07/02/23
17:34
[id number] Pept [id number]
Please clarify the acuity and etiology of the pulmonary edema:
Acute non-cardiac pulmonary edema due to fluid overload
Acute non-cardiac pulmonary edema due to other cause (please specify)
Acute pulmonary edema due to heart failure (please specify type and acuity)
Type: systolic, diastolic, combined or other type
Acuity: acute (new onset), chronic or acute on chronic
Pulmonary Edema has been ruled out
Other, please specify
Use of terms such as suspected, likely, concern for, or probable (associated with a specific diagnosis that is being evaluated, monitored, or treated as if it exists) are acceptable and can be coded in the inpatient setting, when documented at the
time of discharge.
Thank you,
KAREN Ayala RN
CDI Specialist
available via tiger text
Please use your independent medical judgment in providing your response.
--- NOTE | 2023-07-05 11:50 | W.PN.ID1 ---
Date of Service
Date of Service: July 05, 2023
Today's Communication
See below. Hospice Consult.
Assessment / Plan
Bioprosthetic- AV Endocarditis
S aureus (MSSA) bacteremia
Shock - resolved
Possible Aspiration pneumonitis vs pneumonia vs atelectasis
Dysphagia
ANNA - improving
Known Skin cancer - L cheek - does not appear to be suprainfected at this time
Aortic valve replacement
Dementia - end stage
- large, mobile echodensity on the bioprosthetic AV valve noted
- not a surgical candidate for valve replacement which is an invasive surgery requiring intubation; if not a candidate for this surgery, then risks of BRIAN outweigh benefits as diagnosis is already confirmed. Discussed with Dr Cuenca today who is
in agreement.
- note that patient is at risk of embolic stroke - risk somewhat mitigated by antibiotics, would keep it on the differential if there is a change in his exam
- repeat blood cultures x2 negative to date.
- Replace daptomycin with cefazolin IV.
-DC ceftriaxone.
- 07/04/23 Dr. Adam discussion with family: medium-intermodal truck driver prognosis guarded, by history patient has end stage dementia which typically has a 6 month life expectancy in and of itself. I have discussed the above in detail with in person
and adult daughter by phone. Shared that at this time he does not seem to be suffering and reasonable to try medical management. is concerned that he has a history of sundowning and has pulled out devices in the past. If we begin to
encounter that, and he pulls out a PICC line, then the risks of ongoing IV antibiotic treatment would likely outweigh the benefits and I would recommend hospice. Family understand the recommendation in that scenario. We also discussed his risk of
stroke. At this time we plan to continue with medical management.
-07/05/23 Dr. rAellano discussion with family. Organism is MSSA. Daptomycin changed to cefazolin 2 g IV q24 x 6 weeks followed by lifelong suppressive po antibiotic if family wants continued treatment. He will need PICC line. reports patient
sundowns at night and he will pull out PICC line. Son states after their discussion with Dr. Adam, he will like to meet with Hospice when his sister from out of town arrives. I agree that he is hospice appropriate. Hospice consult placed.
Chief Complaint
-: Other (endocarditis)
Subjective / Review of Systems
Son and at bedside.
Vital Signs / Physical Exam
Vital Signs
Vital Signs
Temp Pulse Resp BP Pulse Ox
98.0 F 87 18 156/78 98
07/05/23 07:00 07/05/23 07:00 07/05/23 07:00 07/05/23 07:00 07/05/23 07:00
Physical Exam
Constitutional: No Acute Distress and Chronically Ill
Cardiovascular: Irregular Rate and S1/S2
Gastrointestinal: Soft, Non Tender and Non Distended
Neurological: Awake
Objective Data
Lab Data
Lab Results
07/05/23 06:28
07/05/23 06:28
Estimated Creat Clear 57 ml/min 07/05/23 06:28
Lactic Acid 2.0 mmol/L (0.7-2.0) 07/02/23 22:26
Total Bilirubin 0.8 mg/dl (0.2-1.3) 07/02/23 17:34
AST 25 U/L (17-59) 07/02/23 17:34
ALT 21 U/L (0-50) 07/02/23 17:34
Alkaline Phosphatase 202 U/L (38-126) H 07/02/23 17:34
Most recent labs reviewed.
Micro Results:
07/03/23 10:41 Blood Culture - Preliminary
Blood/Venous No Growth in 48 hours- Final report to follow
07/02/23 17:34 Blood Culture - Final
Blood/Venous S aureus-Methicillin Sensitive
Gram Stain - Final
07/02/23 17:34 Blood Culture - Final
Blood/Venous S aureus-Methicillin Sensitive
Gram Stain - Final
07/05/23 06:28 Blood Culture - Pending
Blood/Venous
07/04/23 04:31 Blood Culture - Preliminary
Blood/Venous No Growth in 24 hours- Final report to follow
07/03/23 16:18 Blood Culture - Preliminary
Blood/Venous No Growth in 24 hours- Final report to follow
07/03/23 03:43 MRSA Screen - Final
Nose No Methicillin Resistant Staphylococcus aureus isolated.
07/02/23 18:13 Urine Culture - Final
Urine Streptococcus agalactiae
07/02/23 18:13 Influenza Types A & B (TANG) - Final
Nasal Swab Negative for Influenza A & B, NAAT
Negative results must be combined with clinical observations
and patient history.
Nucleic Acid Amplification test (NAAT)performed on the
[employer] platform.
Care Review
Plan reviewed with: Physician (Dr. Lopez)
--- NOTE | 2023-07-05 12:27 | PTOTSP ---
Video Swallow Study
Summary: Patient presents with at least moderate oral and mild pharyngeal dysphagia. There was deep laryngeal penetration with thin liquids via tsp. Patient at times had absent swallows (thin tsp #1, suspect volume related) and prolonged oral
holding (barium paste) with need for max cues and liquid washes to initiate A-P transfer. Etiology of dysphagia is likely dementia, CVA, and acute TME. Please see patient care note for full details of swallowing physiology.
Suspect patient's dysphagia severity may fluctuate and that he may have difficulty consistently taking oral medications and meeting nutrition/hydration needs with an oral diet. If family wishes to initiate an oral diet understanding risk for
variable dysphagia severity and aspiration risks, consider diet (IDDSI Level 4 (Puree), IDDSI Level 2 (Mildly Thick Liquids) with strategies below. If they do not accept these risks continue NPO and consider temporary non-oral means.
1. Medications - crushed in puree if medically cleared to do so (if opting for oral diet)
2. 1:1 supervision/assist
3. Strategies: slow rate, verbal cues to swallow, check for oral clearance, liquid wash as needed to clear oral cavity, oral care after meals
4. Oral care 3-5x daily
5. Dysphagia follow up for education and instruction in compensations.
[2023-07-05] MEDS: APRESOLINE 10 MG IV (12:30)
[2023-07-05] MEDS: ANCEF 10 IV ×2 (13:08→22:30)
--- NOTE | 2023-07-05 13:40 | CM ---
manager transportation planning reviewed patient's chart and consult has been placed for hospice, patient resides at [facility] and spouse is in the apartments at [facility], family are requesting hospice, hospice options reviewed with patient and
patient has selected [facility], referral sent to [facility].
Plan; Await recommendations from [facility].
--- NOTE | 2023-07-05 14:24 | HOSPNOTE ---
Spoke with spouse and conferenced daughter in on the call. I explained hospice and the philosophy and they are in agreement with hospice however would like to talk to the rest of the family. I gave them my direct number to call back. Case management
updated.
[2023-07-06 03:00] VITALS: BP 127/76
[2023-07-06] MEDS: ANCEF 10 IV ×3 (05:03→22:59)
[2023-07-06 07:00] VITALS: BP 148/71
[2023-07-06 08:05] LABS: Hematocrit 24.7 % (39.0-52.0); Mean Corp Hgb Conc. 32.4 g/dL (33.0-37.0); Mean Corpuscular Hgb 27.2 pg (27.0-31.0); Mean Platelet Volume 11.6 fL (7.4-10.4); Platelet Count 116 10^3/uL (130-400); Red Blood Cell Count 2.94 10^6/uL (4.70-6.10); Red Cell Dist. Width 15.3 % (11.5-14.5); White Blood Cell Count 10.8 10^3/uL (4.8-10.8)
[2023-07-06 08:50] LABS: Blood Urea Nitrogen 27 mg/dl (9-20); Calcium 8.8 mg/dl (8.4-10.2); Carbon Dioxide 16 mmol/L (22-30); Chloride 121 mmol/L (98-107); Estimated Creatinine Clearance 57 ml/min; Glucose 88 mg/dl (70-99); Potassium 3.6 mmol/L (3.5-5.1); Sodium 147 mmol/L (135-145); eGFR > 60.00
--- NOTE | 2023-07-06 09:26 | W.PN.ID1 ---
Date of Service
Date of Service: July 06, 2023
Today's Communication
See below.
Assessment / Plan
Bioprosthetic- AV Endocarditis
S aureus (MSSA) bacteremia
Shock - resolved
Possible Aspiration pneumonitis vs pneumonia vs atelectasis
Dysphagia
ANNA - improving
Known Skin cancer - L cheek - does not appear to be suprainfected at this time
Aortic valve replacement
Dementia - end stage
- large, mobile echodensity on the bioprosthetic AV valve noted
- not a surgical candidate for valve replacement which is an invasive surgery requiring intubation
- note that patient is at risk of embolic stroke - risk somewhat mitigated by antibiotics, would keep it on the differential if there is a change in his exam
- repeat blood cultures positive 07/02
- febrile this am
- Continue cefazolin IV for now.
- Overall poor prognosis. Hospice to meet with family.
Chief Complaint
-: Bacteremia and Other (endocarditis)
Vital Signs / Physical Exam
Vital Signs
Vital Signs
Temp Pulse Resp BP Pulse Ox
99.8 F 80 18 148/71 97
07/06/23 08:49 07/06/23 07:00 07/06/23 07:00 07/06/23 07:00 07/06/23 07:00
Selected Entries
07/06/23
07:00
Temp 100.4 F H
Physical Exam
Constitutional: Chronically Ill
Eyes: Sclera Anicteric
Cardiovascular: Irregular Rate and S1/S2
Pulmonary: Clear
Gastrointestinal: Soft, Non Tender and Non Distended
Extremities: Negative Edema
Neurological: AO x 3
Objective Data
Lab Data
Lab Results
07/06/23 06:07
07/06/23 06:07
Estimated Creat Clear 57 ml/min 07/06/23 06:07
Lactic Acid 2.0 mmol/L (0.7-2.0) 07/02/23 22:26
Total Bilirubin 0.8 mg/dl (0.2-1.3) 07/02/23 17:34
AST 25 U/L (17-59) 07/02/23 17:34
ALT 21 U/L (0-50) 07/02/23 17:34
Alkaline Phosphatase 202 U/L (38-126) H 07/02/23 17:34
Most recent labs reviewed.
Micro Results:
07/06/23 06:07 Blood Culture - Pending
Blood/Venous
07/05/23 06:28 Blood Culture - Preliminary
Blood/Venous No Growth in 24 hours- Final report to follow
07/04/23 04:31 Blood Culture - Preliminary
Blood/Venous No Growth in 48 hours- Final report to follow
07/03/23 16:18 Blood Culture - Preliminary
Blood/Venous Positive culture in progress
Gram Stain - Preliminary
07/03/23 10:41 Blood Culture - Preliminary
Blood/Venous No Growth in 48 hours- Final report to follow
07/02/23 17:34 Blood Culture - Final
Blood/Venous S aureus-Methicillin Sensitive
Gram Stain - Final
07/02/23 17:34 Blood Culture - Final
Blood/Venous S aureus-Methicillin Sensitive
Gram Stain - Final
07/03/23 03:43 MRSA Screen - Final
Nose No Methicillin Resistant Staphylococcus aureus isolated.
07/02/23 18:13 Urine Culture - Final
Urine Streptococcus agalactiae
07/02/23 18:13 Influenza Types A & B (TANG) - Final
Nasal Swab Negative for Influenza A & B, NAAT
Negative results must be combined with clinical observations
and patient history.
Nucleic Acid Amplification test (NAAT)performed on the
[employer] platform.
--- NOTE | 2023-07-06 09:34 | W.PN.HOSP.TC ---
Today's Communication/Plan
-
Initiate comfort care measures. Hospice evaluation in progress.
Assessment / Plan
Assessment / Plan
Physical exam:
General: Acutely ill
HEENT: 6 x 4 wound on the left cheek area with raised red lesion proximal. Normocephalic, Atraumatic and Dry Mucous Membranes
Respiratory: Clear to Auscultation; Negative Wheezes, Rales or Rhonchi
Cardiac: Regular Rhythm and S1/S2
GI: Soft, Nontender and Nondistended
Neuro: Awake, Alert and Disoriented
TTE:
Normal LV size and function with no regional wall motion abnormalities.
LVEF is 55 to 60% by Dover's method of discs.
Stage III diastolic dysfunction suggestive of restrictive filling pattern and
increased filling pressures.
Dilated RV with normal systolic function.
Well-seated bioprosthetic aortic valve with peak and mean gradients of 27 and
17 mmHg, respectively. There is a 1.0 x 0.8 cm mobile echo density noted. Trace
aortic regurgitation.
Mild mitral regurgitation. Echodensity on anterior leaflet (views 75-80),
measures
0.8 x 0.6 cm, differential includes calcium vs vegetation.
Moderate tricuspid regurgitation. Estimated pulmonary artery pressure of 55
mmHg, assuming a right atrial pressure of 8 mmHg.
Compared to prior from October 03, 2022, mobile echodensities noted as above are
new and elevated PASP is mild to moderately elevated compared to severely
elevated previously.
A/P:
Septic shock and bacteremia:
Patient's family has opted for comfort care and seems to be reasonable.
Will start some comfort care measures.
Hospice care consulted yesterday
Discussed with ID via [place] text yesterday
Continue antibiotics per ID
WBC 10.8 today
He is having fevers today-add Tylenol as needed
Appreciated ID follow
Prior to today:
-Levophed off
-IV fluids
-ID consult appreciated
-IV antibiotics, daptomycin and ceftriaxone
-Blood cultures positive with staph but awaiting identification
-Repeat blood cultures on 07/02 and 07/03 pending
-Obtained transthoracic echocardiogram
-WBC 11.4 today
-Discussed with at bedside today. Discussed if patient clinically deteriorates then would consider hospice care but follow response and progress for now.
-Of note patient with bioprosthetic aortic valve replacement.
-Cardiology consulted--> defer to cardiology and ID if BRIAN will be needed
Acute kidney injury
Related to sepsis
Creatinine peak at 1.9 and down to 0.9 today
Stop IV fluids
Monitor renal function
Toxic metabolic encephalopathy
Due to sepsis with underlying dementia
Monitor mental status
Haldol as needed (reviewed latest EKG QTc 466)
Acute hypoxic respiratory failure
Titrate oxygen off
Seen reviewed chest x-ray and not really impressive
Permanent atrial fibrillation with rapid ventricular response
As infection improves this will improve as well
Add IV metoprolol as needed blood pressure.
History of CVA
On statin
tells me after stroke he has been mainly at rehab and wheelchair-bound
Dysphagia
Will start diet for comfort
Speech therapy for swallow eval appreciated
Skin cancer
Patient scheduled for surgery this coming Saturday but this will need to be postponed.
Anemia
Hemoglobin 8.6 today
Continue to monitor
Hypertension
Now hypotensive so hold antihypertensive and reevaluate
Hyperlipidemia
Resume atorvastatin when able to take PO meds
BPH
Will resume Flomax when taking oral
DVT proph: SCDs
Code Status: DNR. Prognosis guarded
Total Critical Care Time 40 minutes. I was immediately available to the patient and staff. I personally examined, reviewed labs, diagnostic images/reports, interpretations, treatment plans, discussed patient care with other providers and family
or caregivers (if patient is unable to make decisions), entered orders as appropriate and documented the medical record.
Anticipated Discharge: > 48 hours
Subjective/Interval History
-
Date of Service: July 06, 2023
Patient remains frail. He had a fever today.
Objective Data
-
Labs:
Laboratory Results
07/06/23
06:07
WBC 10.8
Hgb 8.0 L
Hct 24.7 L
Plt Count 116 L
Sodium 147 H
Potassium 3.6
Chloride 121 H
Carbon Dioxide 16 L
BUN 27 H
Creatinine 0.9
Glucose 88
Calcium 8.8
Vital Signs:
Vital Signs
Temp Pulse Resp BP Pulse Ox
99.8 F 80 18 148/71 97
07/06/23 08:49 07/06/23 07:00 07/06/23 07:00 07/06/23 07:00 07/06/23 07:00
I&O
07/05/23 07/06/23 07/07/23
06:59 06:59 06:59
Intake Total 1780 / 1780 1100 / 1100
Output Total 1050 / 1050 750 / 750
Balance 730 / 730 350 / 350
--- NOTE | 2023-07-06 10:21 | CM ---
Addendum entered by Breonna Murray 07/06/23 15:35:
Call placed to [facility], hospice case manager spoke with [place] referral sent through [employer].
Addendum entered by Breonna Murray 07/06/23 15:26:
apartment community assistant manager received a call from patient's daughter Lisy that plan is for patient to return to [facility] skilled on [facility], call placed to admissions at [facility] and call placed to [facility].
Original Note:
Chart reviewed and plan is for patient to return to [facility] halfway care when stable, family discussing hospice, referral sent to [facility] yesterday.
Plan; Patient to return to [facility] when stable, family have not made a decision on hospice yet.
[2023-07-06 11:00] VITALS: BP 134/69
[2023-07-06] MEDS: NSS 1000 IV (11:03)
[2023-07-06 15:00] VITALS: BP 154/78
[2023-07-06] MEDS: TYLENOL/FEVERALL 650 MG RECTAL (15:38)
[2023-07-06 23:05] VITALS: BP 133/82
[2023-07-07] MEDS: ANCEF 10 IV (05:44)
[2023-07-07 07:00] VITALS: BP 133/89
[2023-07-07 07:06] LABS: Blood Urea Nitrogen 25 mg/dl (9-20); Calcium 8.7 mg/dl (8.4-10.2); Carbon Dioxide 20 mmol/L (22-30); Chloride 124 mmol/L (98-107); Estimated Creatinine Clearance 57 ml/min; Glucose 86 mg/dl (70-99); Potassium 3.5 mmol/L (3.5-5.1); Sodium 150 mmol/L (135-145); eGFR > 60.00
[2023-07-07 07:10] LABS: Hematocrit 26.3 % (39.0-52.0); Hemoglobin 8.7 g/dL (13.0-18.0); Mean Corp Hgb Conc. 33.1 g/dL (33.0-37.0); Mean Corpuscular Hgb 27.9 pg (27.0-31.0); Mean Corpuscular Volume 84.3 fL (80.0-94.0); Mean Platelet Volume 11.8 fL (7.4-10.4); Platelet Count 137 10^3/uL (130-400); Red Blood Cell Count 3.12 10^6/uL (4.70-6.10); Red Cell Dist. Width 15.5 % (11.5-14.5)
--- NOTE | 2023-07-07 09:39 | W.PN.HOSP.TC ---
Today's Communication/Plan
-
Comfort care measures. Hospice care consult
Assessment / Plan
Assessment / Plan
Physical exam:
General: Acutely ill
HEENT: 6 x 4 wound on the left cheek area with raised red lesion proximal. Normocephalic, Atraumatic and Dry Mucous Membranes
Respiratory: Clear to Auscultation; Negative Wheezes, Rales or Rhonchi
Cardiac: Regular Rhythm and S1/S2
GI: Soft, Nontender and Nondistended
Neuro: Awake, Alert and Disoriented
TTE:
Normal LV size and function with no regional wall motion abnormalities.
LVEF is 55 to 60% by Dover's method of discs.
Stage III diastolic dysfunction suggestive of restrictive filling pattern and
increased filling pressures.
Dilated RV with normal systolic function.
Well-seated bioprosthetic aortic valve with peak and mean gradients of 27 and
17 mmHg, respectively. There is a 1.0 x 0.8 cm mobile echo density noted. Trace
aortic regurgitation.
Mild mitral regurgitation. Echodensity on anterior leaflet (views 75-80),
measures
0.8 x 0.6 cm, differential includes calcium vs vegetation.
Moderate tricuspid regurgitation. Estimated pulmonary artery pressure of 55
mmHg, assuming a right atrial pressure of 8 mmHg.
Compared to prior from October 03, 2022, mobile echodensities noted as above are
new and elevated PASP is mild to moderately elevated compared to severely
elevated previously.
A/P:
Septic shock and bacteremia:
Patient's family has opted for comfort care and seems to be reasonable.
Started some comfort care measures.
Hospice care consulted on 07/04
Might be able to stop abx--> ID discontinued antibiotics today.
Discussed with family at bedside today on 07/06 including and daughter.
Prior to today:
-Levophed off
-IV fluids
-ID consult appreciated
-IV antibiotics, daptomycin and ceftriaxone
-Blood cultures positive with staph but awaiting identification
-Repeat blood cultures on 07/02 and 07/03 pending
-Obtained transthoracic echocardiogram
-WBC 11.4 today
-Discussed with at bedside today. Discussed if patient clinically deteriorates then would consider hospice care but follow response and progress for now.
-Of note patient with bioprosthetic aortic valve replacement.
-Cardiology consulted--> defer to cardiology and ID if BRIAN will be needed
Acute kidney injury
Related to sepsis
Creatinine peak at 1.9 and down to 0.9 today
Stop IV fluids
Monitor renal function
Toxic metabolic encephalopathy
Due to sepsis with underlying dementia
Monitor mental status
Haldol as needed (reviewed latest EKG QTc 466)
Acute hypoxic respiratory failure
Titrate oxygen off
Seen reviewed chest x-ray and not really impressive
Permanent atrial fibrillation with rapid ventricular response
As infection improves this will improve as well
Add IV metoprolol as needed blood pressure.
History of CVA
On statin
tells me after stroke he has been mainly at rehab and wheelchair-bound
Dysphagia
Will start diet for comfort
Speech therapy for swallow eval appreciated
Skin cancer
Patient scheduled for surgery this coming Saturday but this will need to be postponed.
Anemia
Hemoglobin 8.6 today
Continue to monitor
Hypertension
Now hypotensive so hold antihypertensive and reevaluate
Hyperlipidemia
Resume atorvastatin when able to take PO meds
BPH
Will resume Flomax when taking oral
DVT proph: SCDs
Code Status: DNR. Prognosis guarded
Anticipated Discharge: 24 - 48 hours
Subjective/Interval History
-
Date of Service: July 07, 2023
Patient looks frail. Comfortable
Objective Data
-
Labs:
Laboratory Results
07/07/23
05:42
WBC 10.0
Hgb 8.7 L
Hct 26.3 L
Plt Count 137
Sodium 150 H
Potassium 3.5
Chloride 124 H
Carbon Dioxide 20 L
BUN 25 H
Creatinine 0.9
Glucose 86
Calcium 8.7
Vital Signs:
Vital Signs
Temp Pulse Resp BP Pulse Ox
98.9 F 84 18 133/89 98
07/07/23 07:00 07/07/23 07:00 07/07/23 07:00 07/07/23 07:00 07/07/23 07:00
I&O
07/06/23 07/07/23 07/08/23
06:59 06:59 06:59
Intake Total 1100 / 1100 0 / 0
Output Total 750 / 750
Balance 350 / 350 0 / 0
--- NOTE | 2023-07-07 12:11 | W.PN.ID1 ---
Date of Service
Date of Service: July 07, 2023
Today's Communication
Pt now hospice.
DC cefazolin.
Assessment / Plan
Bioprosthetic- AV Endocarditis
S aureus (MSSA) bacteremia
Fever
Shock - resolved
Possible Aspiration pneumonitis vs pneumonia vs atelectasis
Dysphagia
ANNA
Known Skin cancer - L cheek - does not appear to be suprainfected at this time
Aortic valve replacement
Dementia - end stage
- large, mobile echodensity on the bioprosthetic AV valve noted
- not a surgical candidate for valve replacement which is an invasive surgery requiring intubation
- note that patient is at risk of embolic stroke - risk somewhat mitigated by antibiotics, would keep it on the differential if there is a change in his exam
- repeat blood cultures positive 07/02
- Patient is now hospice.
- and daughter wants to stop abx.
- DC cefazolin.
Chief Complaint
-: Bacteremia and Other (endocarditis)
Subjective / Review of Systems
and daughter at bedside.
Pt is comfortable
Vital Signs / Physical Exam
Vital Signs
Vital Signs
Temp Pulse Resp BP Pulse Ox
98.9 F 84 18 133/89 98
07/07/23 07:00 07/07/23 07:00 07/07/23 07:00 07/07/23 07:00 07/07/23 07:00
Physical Exam
Constitutional: Acutely Ill and Chronically Ill
Objective Data
Lab Data
Lab Results
07/07/23 05:42
07/07/23 05:42
Estimated Creat Clear 57 ml/min 07/07/23 05:42
Lactic Acid 2.0 mmol/L (0.7-2.0) 07/02/23 22:26
Total Bilirubin 0.8 mg/dl (0.2-1.3) 07/02/23 17:34
AST 25 U/L (17-59) 07/02/23 17:34
ALT 21 U/L (0-50) 07/02/23 17:34
Alkaline Phosphatase 202 U/L (38-126) H 07/02/23 17:34
Most recent labs reviewed.
Micro Results:
07/03/23 10:41 Blood Culture - Preliminary
Blood/Venous No Growth in 4 days- Final report to follow
07/06/23 06:07 Blood Culture - Preliminary
Blood/Venous No Growth in 24 hours- Final report to follow
07/05/23 06:28 Blood Culture - Preliminary
Blood/Venous No Growth in 48 hours- Final report to follow
07/04/23 04:31 Blood Culture - Preliminary
Blood/Venous No Growth in 72 hours- Final report to follow
07/03/23 16:18 Blood Culture - Preliminary
Blood/Venous S aureus-Methicillin Sensitive
Gram Stain - Preliminary
07/02/23 17:34 Blood Culture - Final
Blood/Venous S aureus-Methicillin Sensitive
Gram Stain - Final
07/02/23 17:34 Blood Culture - Final
Blood/Venous S aureus-Methicillin Sensitive
Gram Stain - Final
07/03/23 03:43 MRSA Screen - Final
Nose No Methicillin Resistant Staphylococcus aureus isolated.
07/02/23 18:13 Urine Culture - Final
Urine Streptococcus agalactiae
07/02/23 18:13 Influenza Types A & B (TANG) - Final
Nasal Swab Negative for Influenza A & B, NAAT
Negative results must be combined with clinical observations
and patient history.
Nucleic Acid Amplification test (NAAT)performed on the
[employer] platform.
[2023-07-07 23:16] VITALS: BP 163/73
[2023-07-07] MEDS: TYLENOL 650 MG PO (23:33)
[2023-07-08] MEDS: TYLENOL/FEVERALL 650 MG RECTAL ×2 (00:35→21:32)
[2023-07-08 08:14] VITALS: BP 166/78
--- NOTE | 2023-07-08 09:51 | W.PN.HOSP.TC ---
Today's Communication/Plan
-
Continue comfort care measures. Hospice care evaluation today.
Assessment / Plan
Assessment / Plan
Physical exam:
General: Acutely ill
HEENT: 6 x 4 wound on the left cheek area with raised red lesion proximal. Normocephalic, Atraumatic and Dry Mucous Membranes
Respiratory: Clear to Auscultation; Negative Wheezes, Rales or Rhonchi
Cardiac: Regular Rhythm and S1/S2
GI: Soft, Nontender and Nondistended
Neuro: Awake, Alert and Disoriented
TTE:
Normal LV size and function with no regional wall motion abnormalities.
LVEF is 55 to 60% by Dover's method of discs.
Stage III diastolic dysfunction suggestive of restrictive filling pattern and
increased filling pressures.
Dilated RV with normal systolic function.
Well-seated bioprosthetic aortic valve with peak and mean gradients of 27 and
17 mmHg, respectively. There is a 1.0 x 0.8 cm mobile echo density noted. Trace
aortic regurgitation.
Mild mitral regurgitation. Echodensity on anterior leaflet (views 75-80),
measures
0.8 x 0.6 cm, differential includes calcium vs vegetation.
Moderate tricuspid regurgitation. Estimated pulmonary artery pressure of 55
mmHg, assuming a right atrial pressure of 8 mmHg.
Compared to prior from October 03, 2022, mobile echodensities noted as above are
new and elevated PASP is mild to moderately elevated compared to severely
elevated previously.
A/P:
Septic shock and bacteremia:
Patient's family has opted for comfort care and seems to be reasonable.
Started some comfort care measures.
Hospice care consulted on 07/04
Might be able to stop abx--> ID discontinued antibiotics today.
Discussed with family at bedside yesterday.
Awaiting for family and hospice discussion today
Prior to today:
-Levophed off
-IV fluids
-ID consult appreciated
-IV antibiotics, daptomycin and ceftriaxone
-Blood cultures positive with staph but awaiting identification
-Repeat blood cultures on 07/02 and 07/03 pending
-Obtained transthoracic echocardiogram
-WBC 11.4 today
-Discussed with at bedside today. Discussed if patient clinically deteriorates then would consider hospice care but follow response and progress for now.
-Of note patient with bioprosthetic aortic valve replacement.
-Cardiology consulted--> defer to cardiology and ID if BRIAN will be needed
Acute kidney injury
Related to sepsis
Creatinine peak at 1.9 and down to 0.9 today
Stop IV fluids
Monitor renal function
Toxic metabolic encephalopathy
Due to sepsis with underlying dementia
Monitor mental status
Haldol as needed (reviewed latest EKG QTc 466)
Acute hypoxic respiratory failure
Titrate oxygen off
Seen reviewed chest x-ray and not really impressive
Permanent atrial fibrillation with rapid ventricular response
As infection improves this will improve as well
Add IV metoprolol as needed blood pressure.
History of CVA
On statin
tells me after stroke he has been mainly at rehab and wheelchair-bound
Dysphagia
Will start diet for comfort
Speech therapy for swallow eval appreciated
Skin cancer
Patient scheduled for surgery this coming Saturday but this will need to be postponed.
Anemia
Hemoglobin 8.6 today
Continue to monitor
Hypertension
Now hypotensive so hold antihypertensive and reevaluate
Hyperlipidemia
Resume atorvastatin when able to take PO meds
BPH
Will resume Flomax when taking oral
DVT proph: SCDs
Code Status: DNR. Prognosis guarded
Anticipated Discharge: 24 - 48 hours
Subjective/Interval History
-
Date of Service: July 08, 2023
No new events. Patient appears comfortable
Objective Data
-
Vital Signs:
Vital Signs
Temp Pulse Resp BP Pulse Ox
97.8 F 75 14 166/78 96
07/08/23 08:14 07/08/23 08:14 07/08/23 08:14 07/08/23 08:14 07/08/23 08:14
I&O
07/07/23 07/08/23 07/09/23
06:59 06:59 06:59
Intake Total 0 / 0
Balance 0 / 0
--- NOTE | 2023-07-08 15:02 | CM ---
follow up manager reviewed patient's chart and spoke with patient and patient's family at bedside, plan is to transfer patient back to [facility] with [facility], caser up spoke with admissions at [facility] and they will need to confirm
that they have a contract with [facility] prior to service.
Plan; Patient to return to [facility] with [facility] when stable.
[facility] [phone]
[facility]
Report [phone]
[2023-07-08 23:30] VITALS: BP 160/80
[2023-07-09] MEDS: APRESOLINE 10 MG IV (03:58)
--- NOTE | 2023-07-09 07:41 | W.PN.HOSP.TC ---
Today's Communication/Plan
-
Discharge planning today.
Assessment / Plan
Assessment / Plan
Physical exam:
General: Acutely ill
HEENT: 6 x 4 wound on the left cheek area with raised red lesion proximal. Normocephalic, Atraumatic and Dry Mucous Membranes
Respiratory: Clear to Auscultation; Negative Wheezes, Rales or Rhonchi
Cardiac: Regular Rhythm and S1/S2
GI: Soft, Nontender and Nondistended
Neuro: Awake, Alert and Disoriented
TTE:
Normal LV size and function with no regional wall motion abnormalities.
LVEF is 55 to 60% by Dover's method of discs.
Stage III diastolic dysfunction suggestive of restrictive filling pattern and
increased filling pressures.
Dilated RV with normal systolic function.
Well-seated bioprosthetic aortic valve with peak and mean gradients of 27 and
17 mmHg, respectively. There is a 1.0 x 0.8 cm mobile echo density noted. Trace
aortic regurgitation.
Mild mitral regurgitation. Echodensity on anterior leaflet (views 75-80),
measures
0.8 x 0.6 cm, differential includes calcium vs vegetation.
Moderate tricuspid regurgitation. Estimated pulmonary artery pressure of 55
mmHg, assuming a right atrial pressure of 8 mmHg.
Compared to prior from October 03, 2022, mobile echodensities noted as above are
new and elevated PASP is mild to moderately elevated compared to severely
elevated previously.
A/P:
Septic shock and bacteremia:
Patient's family has opted for comfort care and seems to be reasonable.
Started some comfort care measures.
Hospice care consulted on 07/04
Might be able to stop abx--> ID discontinued antibiotics today.
Discussed with family at bedside today.
Discussed with child support case officer today
Plan to discharge to hospice today
Prior to today:
-Levophed off
-IV fluids
-ID consult appreciated
-IV antibiotics, daptomycin and ceftriaxone
-Blood cultures positive with staph but awaiting identification
-Repeat blood cultures on 07/02 and 07/03 pending
-Obtained transthoracic echocardiogram
-WBC 11.4 today
-Discussed with at bedside today. Discussed if patient clinically deteriorates then would consider hospice care but follow response and progress for now.
-Of note patient with bioprosthetic aortic valve replacement.
-Cardiology consulted--> defer to cardiology and ID if BRIAN will be needed
Acute kidney injury
Related to sepsis
Creatinine peak at 1.9 and down to 0.9 today
Stop IV fluids
Monitor renal function
Toxic metabolic encephalopathy
Due to sepsis with underlying dementia
Monitor mental status
Haldol as needed (reviewed latest EKG QTc 466)
Acute hypoxic respiratory failure
Titrate oxygen off
Seen reviewed chest x-ray and not really impressive
Permanent atrial fibrillation with rapid ventricular response
As infection improves this will improve as well
Add IV metoprolol as needed blood pressure.
History of CVA
On statin
tells me after stroke he has been mainly at rehab and wheelchair-bound
Dysphagia
Will start diet for comfort
Speech therapy for swallow eval appreciated
Skin cancer
Patient scheduled for surgery this coming Saturday but this will need to be postponed.
Anemia
Hemoglobin 8.6 today
Continue to monitor
Hypertension
Now hypotensive so hold antihypertensive and reevaluate
Hyperlipidemia
Resume atorvastatin when able to take PO meds
BPH
Will resume Flomax when taking oral
DVT proph: SCDs
Code Status: DNR. Prognosis guarded
Anticipated Discharge: Today
Subjective/Interval History
-
Date of Service: July 09, 2023
Patient appears comfortable.
Objective Data
-
Vital Signs:
Vital Signs
Temp Pulse Resp BP Pulse Ox
100.3 F 83 16 173/80 96
07/08/23 23:30 07/08/23 23:30 07/08/23 23:30 07/09/23 03:58 07/08/23 23:30
[2023-07-09 07:56] VITALS: BP 158/81
--- NOTE | 2023-07-09 11:41 | CM ---
Multiples phone calls between [facility] and [facility]/[place] ([phone])
Plan for dc today to [facility] with [facility]
Per hospice, no medication scripts are needed on dc
Bedside update to spouse and dtr
In agreement with plan
IMM verbally reviewed-copy provided
Transport forms along with DNR on chart
update to Dr. Lopez/TT
COVID test requested per SNF
Discharge Disposition- [facility] via [facility] [address]
Phone- [phone]
[facility]

Please fax COVID test results to [facility]
--- NOTE | 2023-07-09 12:17 | W.DCSUMMARY ---
Discharge Summary
Discharge Data
Date of Admission: 07/02/23
Date of Discharge: 07/09/23
-
Pending Results: No
Hospital Course
Patient 88 years old male with history of dementia and renal bowel syndrome hypertension permanent A-fib aortic valve stenosis status post valve replacement dementia stroke presented to the hospital with sepsis. Patient initially required
antibiotics fluids pressors and found to have MSSA bacteremia. ID and cardiology consulted. Transthoracic echo shows vegetations. Patient considered to be very high risk for BRIAN and clinically not indicated given his prognosis. After discussion
with patient and family opted for hospice care and comfort care measures. Antibiotics have been discontinued. Patient was placed on morphine and Ativan as needed. Patient has been comfortable. Patient is going to be transferred to hospice
inpatient care today.
Discharge duration: 35 minutes
Discharge Plan
-
Patient Disposition: Hospice - Inpatient
Discharge Diagnosis/Procedures: Septic shock. Methicillin sensitive Staphylococcus bacteremia. Acute kidney injury. Toxic metabolic encephalopathy. Acute hypoxic respiratory failure. Permanent atrial fibrillation with rapid ventricular
response. History of stroke. Dysphagia. Skin cancer. Anemia.
Diet: Regular
Activity: As tolerated
Activity Restrictions/Additional Instructions:
Wound Care Instructions
L facial cheek skin cancer wound-clean gently with saline, apply non adherent gauze pad (i.e. Telfa pad), secure with minimal non irritating tape (i.e. silicone tape), change daily and as needed for drainage.
L arm skin tear-clean with saline, silicone border foam, change every 3 days and as needed for drainage.
Follow up with plastic surgeon.
Referrals:
Margarito Ghosh MD [Family Provider] -
Prescriptions:
Continued
tamsulosin 0.4 mg capsule
0.4 mg PO DAILY
sertraline 50 mg tablet
50 mg PO DAILY
atorvastatin 40 mg Tablet
40 mg PO QPM Qty: 30 0RF
sennosides [senna] 8.6 mg Tablet
17.2 mg PO HS
polyethylene glycol 3350 [Miralax] 17 gram Powder In Packet
17 g PO DAILY
olanzapine [Zyprexa] 10 mg Tablet
10 mg PO HS
acetaminophen 500 mg Tablet
1,000 mg PO TID PRN (Reason: mild pain/fever)
magnesium hydroxide [Milk of Magnesia] 400 mg/5 mL Suspension
30 ml PO DAILY PRN (Reason: if no bm x 2 days)
bisacodyl [Dulcolax (bisacodyl)] 10 mg Suppository
10 mg MT DAILY PRN (Reason: if no bm in 8hrs after MOM)
Fleet Enema 19-7 gram/118 mL Enema
118 ml MT DAILY PRN (Reason: if no bm 8hrs after suppository)
lorazepam 1 mg Tablet
1 mg PO Q8H PRN (Reason: anxiety/agitation)
memantine 5 mg Tablet
5 mg PO BID
melatonin 5 mg Tablet
5 mg PO HS
metoprolol succinate 25 mg Capsule,Sprinkle,Er 24hr
25 mg PO BID
Neosporin + Lidocaine 4 % ointment
1 applic topical TID
Patient Comments:
07/02/2023: apply to CA lesion on face
Discharge Orders:
Discharge Patient (As Directed); Ordered 07/09/23
Ordered By: Jose Lopez
Discharge Date and Time
Print Language: CHINESE
[2023-07-09 13:18] LABS: COVID-19 Antigen Negative (Negative)
[2023-07-09 13:22] VITALS: BP 110/81
== END 2023-07-09 14:50 | disposition hospice, inpatient (51) | DRG 871 ==
LOC: 4 WEST ACU 19:56
PROVIDERS: Nurse Practitioner Gerontology; Physician Assistant; Registered Nurse; ADMITTING PHYSICIAN Hospitalist; ATTENDING PHYSICIAN Hospitalist; CONSULT PHYSICIAN Internal Medicine Cardiovascular Disease; CONSULT PHYSICIAN Student in an Organized Health Care Education/Training Program; EMERGENCY PHYSICIAN Emergency Medicine; FAMILY PHYSICIAN Family Medicine
DX: A41.01 Sepsis due to Methicillin susceptible Staphylococcus aureus (principal); G92.8 Other toxic encephalopathy; J69.0 Pneumonitis due to inhalation of food and vomit; J96.01 Acute respiratory failure with hypoxia; R65.21 Severe sepsis with septic shock; N39.0 Urinary tract infection, site not specified; I48.21 Permanent atrial fibrillation; F01.54 Vascular dementia, unspecified severity, with anxiety; N17.9 Acute kidney failure, unspecified; I38 Endocarditis, valve unspecified; D50.9 Iron deficiency anemia, unspecified; C44.90 Unspecified malignant neoplasm of skin, unspecified; I10 Essential (primary) hypertension; E78.5 Hyperlipidemia, unspecified; N40.0 Benign prostatic hyperplasia without lower urinary tract symptoms; F41.1 Generalized anxiety disorder; Z66 Do not resuscitate; Z51.5 Encounter for palliative care; F03.90 Unspecified dementia, unspecified severity, without behavioral disturbance, psychotic disturbance, mood disturbance, and anxiety; Z11.52 Encounter for screening for COVID-19
CPT/HCPCS: 71045; 74230; 80048; 80053; 81003; 81015; 82550; 83605; 83735; 83880; 85025; 85027; 87040; 87070; 87077; 87086; 87147; 87150; 87186; 87205; 87502; 87811; 92526; 92610; 92611; 93005; 93306; 96361; 96374; 97163; 99285; J0878